=== PATIENT | female | born 1960 | race African-American/Black ===

== ENCOUNTER 2019-11-12 05:54 | Outpatient (CLI) | payer OTHER, SELFPAY ==
[2019-11-12 16:38] LABS: SARS-CoV-2 RNA PCR Negative
== END 2019-11-12 05:55 | disposition home or self-care (01) ==
LOC: ANHCOVIDDT 05:54
PROVIDERS: PCP Internal Medicine; Visit Provider Orthopaedic Surgery
DX: Z01.818 Encounter for other preprocedural examination (principal); Z11.59 Encounter for screening for other viral diseases
CPT/HCPCS: 87635; C9803; U0003

== ENCOUNTER 2019-11-12 09:20 | Outpatient (CLI) | payer OTHER, SELFPAY ==
[2019-11-12 10:46] LABS: Blood Urea Nitrogen 12 mg/dL (7-17); Calcium 9.6 mg/dL (8.4-10.2); Carbon Dioxide 22 mmol/L (22-30); Chloride 110 mmol/L (98-107); Estimated Glomerular Filt Rate 43; Glucose 96 mg/dL (65-105); Sodium 141 mmol/L (137-145)
== END 2019-11-12 09:21 | disposition home or self-care (01) ==
PROVIDERS: PCP Internal Medicine; Visit Provider Anesthesiology
DX: R79.89 Other specified abnormal findings of blood chemistry (principal)
CPT/HCPCS: 36415; 80048

== ENCOUNTER 2019-11-14 01:10 | Day surgery (SDC) | payer OTHER, SELFPAY ==
[2019-11-12 07:37] VITALS: BMI 21.8
[2019-11-14] VITALS (14 sets, daily range): BP systolic 125–160; BP diastolic 71–98; PULSE 60–106; RESP 10–20; TEMP 36.2–36.5; O2SAT 94–100
[2019-11-14] MEDS: LACTATED RINGERS 1,000 ML 30 ML IV CONT ×2 (09:30→12:56)
--- NOTE | 2019-11-14 10:57 | WPDANESEPPF ---
Anes - Initial Pre Proc Eval Procedure: Operation Date: 11/14/19 10:15 Proposed Procedures p Left Shoulder Arthroscopic Capsular Release, Manipulation, Proceed As Indicated - Nba Epstein MD Date/Time: 11/14/19 10:57 Surgeon: Nba Epstein MD Pre Op Diagnosis: Left Shoulder Adhesive Capsulitis Patient Data Age: 58 Gender: F Height: 5 ft 4 in Weight: 58.9 kg Last Vital Signs Temp 97.7 F 11/14/19 08:15 Pulse 70 11/14/19 08:15 Resp 15 11/14/19 08:15 BP 136/74 11/14/19 08:15 Pulse Ox 100 11/14/19 08:15 Allergies Allergy/AdvReac Type Severity Reaction Status Date / Time codeine Allergy Unknown Itching, Verified 11/12/19 07:39 THROAS SWELLING Penicillins Allergy Unknown Itching Verified 11/12/19 07:39 tramadol Allergy Unknown Itching, Verified 11/12/19 07:39 THROAT SWELLING gabapentin Allergy Itching Verified 11/12/19 07:40 hydrocodone Allergy ITCHING, Verified 11/12/19 07:39 THROAT SWELLING prednisone AdvReac Unknown Confusion Verified 11/12/19 07:39 Home Medications Medication Instructions Recorded Confirmed Type baclofen 10 mg tablet 10 mg PO DAILY 05/20/19 11/12/19 History esterified 1 tablet PO EVERY OTHER DAY 05/20/19 11/12/19 History estrogens-methyltestosterone 0.625 mg-1.25 mg tablet biotin 2,500 mcg capsule 2,500 mcg PO DAILY 06/05/19 11/12/19 History rosuvastatin 5 mg tablet 5 mg PO DAILY #30 tablet 07/07/19 11/12/19 Rx topiramate 100 mg capsule,extended 100 mg PO QPM 09/17/19 11/12/19 History release 24 hr calcium carbonate [Calcium 600] 600 mg PO DAILY 11/12/19 11/12/19 History Patient hx anesthesia problems: none and post op nausea/vomiting (will give Zofran and Scopolamine) Family hx anesthesia problems: none PMFSH Past Medical History Medical History (Updated 09/17/19 @ 10:41 by Kaitlin Simon) Adhesive capsulitis of left shoulder CKD (chronic kidney disease) stage 3, GFR 30-59 ml/min Dyslipidemia Elevated TSH Essential hypertension IFG (impaired fasting glucose) Occipital neuralgia Shingles Surgical History Surgical History (Updated 09/17/19 @ 10:00 by Nicole Sanchez) History of cholecystectomy (~05/2008) History of hysterectomy (~10/2001) Family History Family History (Updated 09/19/16 @ 16:05 by DOCTOR UNKNOWN) Mother Family history of Alzheimer's disease Family history of throat cancer, Onset Age: 74 Social History Social History Smoking status: Never smoker Alcohol intake: never Anes - Eval Final PreProcedure Day of Procedure 11/14/19 10:57 Patient weight: normal Heart: regular rate and rhythm Lungs: clear to auscultation Airway: Mallampati scale class II Neurological: alert and oriented Last oral intake: >/= 8 hours ASA classification: III Emergent: no Anesthetic plan: proceed Anesthesia type and monitoring: general ETT (may use LMA if just manipulation) and standard monitoring Informed Consent: The patient's anesthetic plan and its attendant risks and benefits were discussed with the patient/family/POA. Questions were solicited and answers provided to the satisfaction of the patient/family/POA.
[2019-11-14] MEDS: ONDANSETRON INJ 4 MG/2 ML VIAL IV PUSH ×2 (11:00→15:52)
[2019-11-14] MEDS: SCOPOLAMINE 1.5 MG PATCH TRANSDERM (11:03)
--- NOTE | 2019-11-14 11:07 | WPDHPUPDATE1 ---
History and Physical Update Update Date/Time: 11/14/19 11:07 History and Physical has been reviewed, including an updated exam of the patient. There are NO changes in the patient's condition. Risks, benefits, and alternatives have been discussed and questions answered. Patient agrees to proceed with procedure.
[2019-11-14] MEDS: CLINDAMYCIN 900 MG/NS 50 ML 900 MG/50 ML PIGGYBACK 50 MG IVPB (11:13)
[2019-11-14] MEDS: BUPIVACAINE/EPINEPHRINE 0.5% 30 ML VIAL 20 ML INFILTRATE (12:00)
--- NOTE | 2019-11-14 14:26 | SUR.PHASEI ---
1427 SPOKE WITH (DAKOTA) AND GAVE HIM AN UPDATE ON SPOUSE, TOLD HIM IT WOULD BE AT LEAST ANOTHER HOUR BEFORE DISCHARGE
--- NOTE | 2019-11-14 15:39 | PM.PROC ---
Procedure Note - Detailed Date of procedure: 11/14/19 Pre-op diagnosis: Left Shoulder Adhesive Capsulitis Post-op diagnosis: other (1. Adhesive capsulitis left shoulder. 2. Subacromial impingement syndrome.) Procedure performed: 1. Arthroscopic capsular release with manipulation under anesthesia. 2. Arthroscopic subacromial decompression. Description of procedure: The shoulder was very tight with external rotation to 20? and elevation 70?. Gentle manipulation was performed and this was improved slightly. Diagnostic arthroscopy was performed followed by capsule release. She had a significant hyperemia of the capsule with capsulitis. The rotator cuff appeared intact on the articular side as well as the subscapularis. The subacromial bursa was inflamed and thickened. The bursal side cuff showed mild fraying and also fraying on the undersurface of the acromion consistent with impingement syndrome. Acromioplasty was performed and bursectomy was completed. Range of motion at the conclusion of the procedure was 70? external rotation and elevation to 150?. Anesthesia: GLMA Surgeon: Nba Epstein MD Estimated blood loss (mL): 10 Complications: No immediate complications Condition: stable Findings: Brief history: The patient complained of persistent pain and limited range of motion. Pain persisted despite physical therapy and cortisone injections. Operative details: Preoperative antibiotics were given. The patient was brought to the operating room. Careful positioning in the beach chair was accomplished. The head neck were carefully positioned. A small bump was placed under the left shoulder. The shoulder was examined. Manipulation was performed before and after the arthroscopy. Range of motion as documented above. The shoulder was prepped and draped in the usual sterile fashion. Standard posterior and anterior arthroscopic portals were established. The shoulder was inspected. The capsule was very thickened and hyperemic. The biceps and subscapularis, as well as the rotator cuff were normal. The labrum was normal. The rotator interval tissue was resected. Release of the capsule anterior inferior and posterior was accomplished with the radiofrequency probe and the arthroscopic resector punch. Particular care was taken at the axillary pouch to protect the axillary nerve. Attention was turned to the subacromial space. A complete bursectomy was performed. An accessory lateral portal was created. The acromion was clearly visualized. The coracoacromial ligament was released. Careful acromioplasty was performed utilizing views from both lateral and posterior. Loose bone fragments were carefully irrigated from the joint. The arthroscopic instruments were removed. The wounds were closed with interrupted 3-0 Monocryl suture followed by Steri-Strips. A sterile dressing was applied with a sling. The patient was extubated and brought to the recovery room in stable condition. There were no complications.
== END 2019-11-14 16:25 | disposition home or self-care (01) ==
PROVIDERS: PCP Internal Medicine; Visit Provider Orthopaedic Surgery
PROC: (CPT 29805; principal; 2019-11-14 10:15)
DX: M75.02 Adhesive capsulitis of left shoulder (principal); M75.42 Impingement syndrome of left shoulder
CPT/HCPCS: 29822; A4565; A9270; J0131; J2250; J2405; J2704; J3010; J7120

== ENCOUNTER 2019-12-27 04:37 | Outpatient (CLI) | payer OTHER, SELFPAY ==
[2019-12-27 18:08] LABS: SARS-CoV-2 RNA PCR Negative
== END 2019-12-27 04:38 | disposition home or self-care (01) ==
LOC: ANHCOVIDDT 04:37
PROVIDERS: PCP Internal Medicine; Visit Provider Orthopaedic Surgery
DX: Z01.812 Encounter for preprocedural laboratory examination (principal); Z11.59 Encounter for screening for other viral diseases
CPT/HCPCS: 87635; C9803; U0003

== ENCOUNTER 2019-12-30 01:17 | Day surgery (SDC) | payer OTHER, SELFPAY ==
[2019-12-24 17:31] VITALS: BMI 22.3
--- NOTE | 2019-12-29 13:01 | WPDANESEPPF ---
Anes - Initial Pre Proc Eval Procedure: Operation Date: 12/30/19 07:30 Proposed Procedures p Left Shoulder Manipulation Under Anesthesia - Nba Epstein MD Date/Time: 12/29/19 13:01 Surgeon: Nba Epstein MD Pre Op Diagnosis: Left Shoulder Adhesive Capsulitis Patient Data Age: 59 Gender: F Height: 1.63 m Weight: 58.9 kg Allergies Allergy/AdvReac Type Severity Reaction Status Date / Time codeine Allergy Unknown Itching, Verified 12/02/19 10:48 THROAS SWELLING Penicillins Allergy Unknown Itching Verified 12/02/19 10:48 tramadol Allergy Unknown Itching, Verified 12/02/19 10:48 THROAT SWELLING gabapentin Allergy Itching Verified 12/02/19 10:48 hydrocodone Allergy ITCHING, Verified 12/02/19 10:48 THROAT SWELLING prednisone AdvReac Unknown Confusion Verified 12/02/19 10:48 Home Medications Medication Instructions Recorded Confirmed Type baclofen 10 mg tablet 10 mg PO DAILY 05/20/19 12/25/19 History esterified 1 tablet PO EVERY OTHER DAY 05/20/19 12/25/19 History estrogens-methyltestosterone 0.625 mg-1.25 mg tablet biotin 2,500 mcg capsule 2,500 mcg PO DAILY 06/05/19 12/25/19 History rosuvastatin 5 mg tablet 5 mg PO DAILY #30 tablet 07/07/19 12/25/19 Rx topiramate 100 mg capsule,extended 100 mg PO QPM 09/17/19 12/25/19 History release 24 hr calcium carbonate [Calcium 600] 600 mg PO DAILY 11/12/19 12/25/19 History Patient hx anesthesia problems: none Family hx anesthesia problems: none [facility] Social History Social History Smoking status: Never smoker Alcohol intake: never Gender identity (if verbalized by the patient): Female Anes - Eval Final PreProcedure Day of Procedure 12/29/19 13:01 Patient weight: normal Heart: regular rate and rhythm Lungs: clear to auscultation and normal air movement Airway: Mallampati scale class II Neurological: alert and oriented Last oral intake: >/= 8 hours ASA classification: III Emergent: no Anesthetic plan: proceed Anesthesia type and monitoring: general GIVS and LMA Informed Consent: The patient's anesthetic plan and its attendant risks and benefits were discussed with the patient/family/POA. Questions were solicited and answers provided to the satisfaction of the patient/family/POA.
[2019-12-30] VITALS (8 sets, daily range): BP systolic 119–173; BP diastolic 67–91; PULSE 62–93; RESP 14–21; TEMP 36.2; O2SAT 99–100
[2019-12-30] MEDS: LACTATED RINGERS 1,000 ML 30 ML IV CONT ×2 (07:00→08:45)
--- NOTE | 2019-12-30 07:13 | WPDHPUPDATE1 ---
History and Physical Update Update Date/Time: 12/30/19 07:13 History and Physical has been reviewed, including an updated exam of the patient. There are NO changes in the patient's condition. Risks, benefits, and alternatives have been discussed and questions answered. Patient agrees to proceed with procedure.
[2019-12-30] MEDS: SCOPOLAMINE 1.5 MG PATCH TRANSDERM (07:15)
[2019-12-30] MEDS: IBUPROFEN IV 800 MG/200 ML 800 MG/200 ML BAG 400 MG IVPB (08:38)
--- NOTE | 2019-12-30 15:01 | PM.PROC ---
Procedure Note - Detailed Date of procedure: 12/30/19 Pre-op diagnosis: Left Shoulder Adhesive Capsulitis Post-op diagnosis: same Procedure performed: Manipulation under anesthesia left shoulder. Description of procedure: The patient developed significant stiffness after initial capsule release arthroscopically. This was compounded by the fact that she is unable to tolerate any medications other than ibuprofen to assist with pain and range of motion. She completely stalled out at her physical therapy. The block to motion was quite firm and pronounced upon examination in the clinic. We discussed the options and agreed to manipulate the shoulder under anesthesia. The procedure improve the motion quite significantly with modest pressure. She has a continuous passive motion machine and will follow up with her physical therapist today. Anesthesia: GLMA Surgeon: Nba Epstein MD Findings: Preprocedure to postprocedure range of motion as follows. Elevation 90? to 170?. External rotation 15? to 80?. External rotation in abduction 15? to 60?. Internal rotation 30? to 60?. Manipulation was performed in the typical fashion with intial gentle elevation. External rotation was accomplished both abduction and at the side. Internal rotation was performed in abduction. The release of modest adhesions was felt. No other abnormal instability or crepitus was observed.
== END 2019-12-30 10:00 | disposition home or self-care (01) ==
PROVIDERS: PCP Internal Medicine; Visit Provider Orthopaedic Surgery
PROC: (CPT 23700; principal; 2019-12-30 07:30)
DX: M75.02 Adhesive capsulitis of left shoulder (principal); E78.5 Hyperlipidemia, unspecified; I12.9 Hypertensive chronic kidney disease with stage 1 through stage 4 chronic kidney disease, or unspecified chronic kidney disease; N18.3 Chronic kidney disease, stage 3 (moderate)
CPT/HCPCS: 23700; A9270; J0330; J1030; J1040; J1100; J1741; J2405; J2704; J3301; J7120

== ENCOUNTER → 2020-03-23 13:08 | Outpatient (CLI) | payer OTHER, SELFPAY ==
--- NOTE | ~2020-03-23 | DEXA_ITS ---
Bone Density Report Name: Megha Matthews Age: 59 Sex: Female Ethnicity: White Date of : 1960 Indication: postmenopausal; screening for osteoporosis; height loss; hysterectomy; Referring Provider: LATANYA RUIZ Study: Bone densitometry was performed. Exam Date: March 23, 2020 Accession number: [id number] Bone Density: Region BMD T-score Z-score Classification AP Spine (L1-L4) 1.036 -0.1 1.3 Normal Femoral Neck (Left) 0.676 -1.6 -0.3 Osteopenia Total Hip (Left) 0.836 -0.9 0.1 Normal Femoral Neck (Right) 0.652 -1.8 -0.5 Osteopenia Total Hip (Right) 0.814 -1.0 -0.1 Normal Total Hip Mean 0.825 -1.0 0.0 Normal World Health Organization criteria for BMD impression classify patients as: Normal (T-score at or above -1.0), Osteopenia (T-score between -1.0 and -2.5), or Osteoporosis (T-score at or below -2.5). 10-year Fracture Risk: FRAX not reported because: Treated for osteoporosis Clinical Information Provided by Patient: Is being treated for osteoporosis Has used the following medications: HRT (i.e. estrogen/hormone therapy), Vitamin D, Calcium Has the following medical conditions: Hysterectomy Patient maximum height was 65 Menopause Age: 37 No regular weight bearing exercise Does not regularly consume dairy products Drinks caffeinated beverages Onset of menses at age 14 Number of children 2 Impression: The patient has low bone mass, based on the Right Femoral Neck T-score. Discussion: It is important to ask patients whether they are taking their medications and to encourage continued and appropriate compliance with their osteoporosis therapies to reduce fracture risk. It is also important to review their risk factors and encourage appropriate calcium and vitamin D intakes, exercise, fall prevention and other lifestyle measures. Follow-Up: Consider a repeat BMD and Vertebral Fracture Assessment (VFA) exam in 2 years or sooner if medically necessary, to reassess this patient's status. Reported by: NEFTALI on 03/23/2020 1:29:00 PM. Reviewed, dictated and finalized at location A. [place]
== END ==
PROVIDERS: PCP Internal Medicine; Visit Provider Internal Medicine
DX: Z78.0 Asymptomatic menopausal state (principal); M85.852 Other specified disorders of bone density and structure, left thigh; M85.851 Other specified disorders of bone density and structure, right thigh
CPT/HCPCS: 77080

== ENCOUNTER 2021-05-25 08:39 | Outpatient (CLI) | payer BC, SELFPAY ==
--- NOTE | 2021-05-25 08:47 | ECG_ITS ---
Measurements Intervals [place] Rate: 63 P: 75 WA: 205 QRS: 5 QRSD: 83 T: 48 QT: 382 QTc: 392 Interpretive Statements SINUS RHYTHM BORDERLINE AV CONDUCTION DELAY BORDERLINE R WAVE PROGRESSION, ANTERIOR LEADS BASELINE WANDER- I, AVR, AVL, AVF BORDERLINE ECG Electronically Signed On 05-25-2021 12:03:45 UTILITY WORKER by Delfino Mcelroy D.O.
== END 2021-05-25 08:40 | disposition home or self-care (01) ==
PROVIDERS: PCP Internal Medicine; Visit Provider Internal Medicine
DX: I10 Essential (primary) hypertension (principal); I45.9 Conduction disorder, unspecified
CPT/HCPCS: 93005

== ENCOUNTER 2021-09-19 14:29 | Outpatient (CLI) | payer BC, SELFPAY ==
--- NOTE | ~2021-09-19 | XR_ITS ---
EXAMINATION: XR chest 2V 09/19/2021 14:46 INDICATION: Paralysis of the vocal cords and PROCEDURE: 2 view chest COMPARISON: 02/09/2019 FINDINGS: The lungs are clear. The cardiomediastinal silhouette is within normal limits. There are no pleural effusions. There is no pneumothorax suspected. There are cholecystectomy clips. IMPRESSION: 1: NO ACUTE CARDIOPULMONARY DISEASE. Reviewed, dictated and finalized at location A.
== END 2021-09-19 14:30 | disposition home or self-care (01) ==
LOC: ANHIMG 14:34
PROVIDERS: PCP Internal Medicine; Visit Provider Otolaryngology
DX: J38.01 Paralysis of vocal cords and larynx, unilateral (principal)
CPT/HCPCS: 71046

== ENCOUNTER 2021-12-23 01:20 | Day surgery (SDC) | payer BC, SELFPAY ==
[2021-12-06 13:43] VITALS: BMI 23.4
--- NOTE | 2021-12-22 12:41 | WPDANESEPPF ---
Anes - Initial Pre Proc Eval Procedure: Operation Date: 12/23/21 11:00 Proposed Procedures p Screening Colonoscopy - Pierre Padilla MD Date/Time: 12/22/21 12:41 Surgeon: Pierre Padilla MD Pre Op Diagnosis: neoplasm screening Patient Data Age: 61 Gender: F Height: 1.6 m Weight: 60 kg Allergies Allergy/AdvReac Type Severity Reaction Status Date / Time codeine Allergy Unknown Itching, Verified 12/23/21 09:34 THROAS SWELLING Penicillins Allergy Unknown Itching Verified 12/23/21 09:34 tramadol Allergy Unknown Itching, Verified 12/23/21 09:34 THROAT SWELLING gabapentin Allergy Itching Verified 12/23/21 09:34 hydrocodone Allergy ITCHING, Verified 12/23/21 09:34 THROAT SWELLING prednisone AdvReac Unknown Confusion Verified 12/23/21 09:34 Home Medications Medication Instructions Recorded Confirmed Type biotin 2,500 mcg capsule 2,500 mcg PO DAILY 06/05/19 12/23/21 History calcium carbonate 600 mg calcium 600 mg PO DAILY 11/12/19 12/23/21 History (1,500 mg) tablet (Calcium) baclofen 10 mg tablet 20 mg PO DAILY 05/25/21 12/23/21 History cholecalciferol (vitamin D3) 50 50 mcg PO DAILY 05/25/21 12/23/21 History mcg (2,000 unit) capsule topiramate 100 mg capsule,extended 50 mg PO DAILY 05/25/21 12/23/21 History release 24 hr (Trokendi XR) rosuvastatin 5 mg tablet (Crestor) 5 mg PO DAILY #90 tabs 06/30/21 12/23/21 Rx dapagliflozin 5 mg tablet (Farxiga) 5 mg PO DAILY #30 tabs 10/20/21 12/23/21 Rx Patient hx anesthesia problems: post op nausea/vomiting Family hx anesthesia problems: none Results Review: All pre-operative results and documents have been reviewed as part of the pre-operative evaluation. [facility] Past Medical History Medical History (Updated 12/22/21 @ 12:41 by Neil Gonzalez DO) Adhesive capsulitis of left shoulder CKD (chronic kidney disease) stage 3, GFR 30-59 ml/min Diabetes type 2, controlled Dyslipidemia Elevated TSH Thryoid hormone normal in june Essential hypertension IFG (impaired fasting glucose) Occipital neuralgia Shingles Surgical History Surgical History History of arthroscopic surgery of shoulder (~12/15/19) Capsule Release, Manipulation, Subacromial Decompression History of cholecystectomy (~05/2008) History of hysterectomy (~10/2001) History of shoulder surgery (~12/30/19) Manipulation Under Anesthesia Family History Family History Mother Family history of Alzheimer's disease Family history of throat cancer, Onset Age: 74 Social History Social History Smoking status: Never smoker Second hand tobacco smoke exposure: No Alcohol intake: never Alcohol use details: Social Substance use: never Substance use type: does not use Living arrangements: with family Gender identity (if verbalized by the patient): Female Spiritual care concerns: No Anes - Eval Final PreProcedure Day of Procedure 12/22/21 12:41 Patient weight: normal Heart: regular rate and rhythm Lungs: clear to auscultation Airway: Mallampati scale class II Neurological: alert and oriented Last oral intake: >/= 8 hours ASA classification: III Emergent: no Anesthetic plan: proceed Anesthesia type and monitoring: general GIVS and standard monitoring Results Review: All pre-operative results and documents have been reviewed as part of the pre-operative evaluation. Informed Consent: The patient's anesthetic plan and its attendant risks and benefits were discussed with the patient/family/POA. Questions were solicited and answers provided to the satisfaction of the patient/family/POA.
[2021-12-23 09:49] VITALS: BP 124/87; PULSE 110; RESP 18; TEMP 36.3; O2SAT 100; BMI 22.7
[2021-12-23 10:02] LABS: Glucose Point of Care 124 mg/dl (65-105)
--- NOTE | 2021-12-23 10:02 | SUR.PREOP ---
Blood [id number]
[2021-12-23] MEDS: LACTATED RINGERS 1,000 ML 150 ML IV CONT (10:07)
--- NOTE | 2021-12-23 10:33 | PM.HPGS ---
History of Present Illness History of Present Illness Consent: Risks, benefits, and alternatives have been discussed and questions answered. Patient agrees to proceed with procedure. Chief complaint: neoplasm screening Narrative: Megha Matthews is a 61 year old female here for screening colonoscopy, last one more than 10 years ago Review of Systems Constitutional: Constitutional: Denies headache(s) and Denies weakness Eyes: Eyes: Denies blurry vision ENT: Reports Normal hearing present, Denies headache(s) and Denies neck pain Cardiovascular: Cardiovascular: Denies chest pain and Denies dyspnea Respiratory: Respiratory: Denies dyspnea Gastrointestinal: Gastrointestinal: Reports no additional gastrointestinal complaints Genitourinary: Genitourinary: Denies dysuria Musculoskeletal: Musculoskeletal: Denies neck pain Integumentary/Breasts: Skin/Breast: Denies dry skin Neurologic: Reports Normal hearing present, Denies headache(s) and Denies weakness Psychiatric: Psychiatric: Denies anxiety Endocrine: Endocrine: Denies change in body appearance Hematologic/Lymphatic: Hematologic/Lymphatic: Denies easy bleeding Allergic/Immunologic: Allergic/Immunologic: Denies urticaria PMFSH Past Medical History Medical History (Updated 12/23/21 @ 10:34 by Pierre Padilla MD) Adhesive capsulitis of left shoulder CKD (chronic kidney disease) stage 3, GFR 30-59 ml/min Colon cancer screening Diabetes type 2, controlled Dyslipidemia Elevated TSH Thryoid hormone normal in june Essential hypertension IFG (impaired fasting glucose) Occipital neuralgia Shingles Surgical History Surgical History History of arthroscopic surgery of shoulder (~12/15/19) Capsule Release, Manipulation, Subacromial Decompression History of cholecystectomy (~05/2008) History of hysterectomy (~10/2001) History of shoulder surgery (~12/30/19) Manipulation Under Anesthesia Family History Family History Mother Family history of Alzheimer's disease Family history of throat cancer, Onset Age: 74 Social History Social History Smoking status: Never smoker Second hand tobacco smoke exposure: No Alcohol intake: never Alcohol use details: Social Substance use: never Substance use type: does not use Living arrangements: with family Gender identity (if verbalized by the patient): Female Spiritual care concerns: No Meds Home Medications and Allergies Home Medications Medication Instructions Recorded Confirmed Type biotin 2,500 mcg capsule 2,500 mcg PO DAILY 06/05/19 12/23/21 History calcium carbonate 600 mg calcium 600 mg PO DAILY 11/12/19 12/23/21 History (1,500 mg) tablet (Calcium) baclofen 10 mg tablet 20 mg PO DAILY 05/25/21 12/23/21 History cholecalciferol (vitamin D3) 50 50 mcg PO DAILY 05/25/21 12/23/21 History mcg (2,000 unit) capsule topiramate 100 mg capsule,extended 50 mg PO DAILY 05/25/21 12/23/21 History release 24 hr (Trokendi XR) rosuvastatin 5 mg tablet (Crestor) 5 mg PO DAILY #90 tabs 06/30/21 12/23/21 Rx dapagliflozin 5 mg tablet (Farxiga) 5 mg PO DAILY #30 tabs 10/20/21 12/23/21 Rx Allergies Allergy/AdvReac Type Severity Reaction Status Date / Time codeine Allergy Unknown Itching, Verified 12/23/21 09:34 THROAS SWELLING Penicillins Allergy Unknown Itching Verified 12/23/21 09:34 tramadol Allergy Unknown Itching, Verified 12/23/21 09:34 THROAT SWELLING gabapentin Allergy Itching Verified 12/23/21 09:34 hydrocodone Allergy ITCHING, Verified 12/23/21 09:34 THROAT SWELLING prednisone AdvReac Unknown Confusion Verified 12/23/21 09:34 Vital Signs Vital Signs - 24 hr 12/23/21 09:49 Temperature 97.3 F L Pulse Rate 110 H Respiratory Rate 18 Blood Pressure 124/87
[2021-12-23 10:49] VITALS: BP 86/67; PULSE 102; RESP 12; O2SAT 99
[2021-12-23 10:59] VITALS: BP 105/86; PULSE 99; RESP 14; O2SAT 98
[2021-12-23 11:09] VITALS: BP 105/81; PULSE 91; RESP 16; O2SAT 99
== END 2021-12-23 11:16 | disposition home or self-care (01) ==
PROVIDERS: PCP Internal Medicine; Visit Provider Internal Medicine Gastroenterology
PROC: 0DJD8ZZ Inspection of Lower Intestinal Tract, Via Natural or Artificial Opening Endoscopic (ICD-10-PCS; CPT 45378; principal; 2021-12-23 11:00)
DX: Z12.11 Encounter for screening for malignant neoplasm of colon (principal); I12.9 Hypertensive chronic kidney disease with stage 1 through stage 4 chronic kidney disease, or unspecified chronic kidney disease; N18.30 Chronic kidney disease, stage 3 unspecified; E11.22 Type 2 diabetes mellitus with diabetic chronic kidney disease; E78.5 Hyperlipidemia, unspecified; Z90.49 Acquired absence of other specified parts of digestive tract
CPT/HCPCS: 45378; 82948; J2704; J7120

== ENCOUNTER 2022-06-17 11:08 | Outpatient (CLI) | payer BC, SELFPAY ==
--- NOTE | ~2022-06-17 | XR_ITS ---
AP and lateral views of the left hip Clinical history: Pain Findings: No acute fracture or dislocation is seen. Osseous alignment is anatomic. Bilateral hip and SI joint spaces are preserved. Soft tissues are unremarkable. Impression: No significant abnormality is seen. Reviewed, dictated and finalized at location [] [facility] Impression: No significant abnormality is seen.
== END 2022-06-17 11:09 | disposition home or self-care (01) ==
LOC: ANHIMG 11:11
PROVIDERS: PCP Internal Medicine; Visit Provider Internal Medicine
DX: M25.552 Pain in left hip (principal)
CPT/HCPCS: 73502

== ENCOUNTER 2023-12-18 11:44 | Outpatient (CLI) | payer BC, SELFPAY ==
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
== END 2023-12-18 11:45 | disposition home or self-care (01) ==
LOC: ANHIMG 11:47
PROVIDERS: PCP Family Medicine; Visit Provider Nurse Practitioner Family
DX: S49.92XA Unspecified injury of left shoulder and upper arm, initial encounter (principal)
CPT/HCPCS: 73030

== ENCOUNTER 2024-01-04 10:27 | Outpatient (CLI) | payer BC, SELFPAY ==
--- NOTE | ~2024-01-04 | US_ITS ---
EXAMINATION: US thyroid DATE: 01/04/2024 10:42 INDICATION: Nontoxic goiter TECHNIQUE: Multiple ultrasound images of the thyroid were obtained. COMPARISON: None. FINDINGS: The right thyroid lobe measures 4.2 x 1.4 x 1.5 cm. The left thyroid lobe measures 4.1 x 1.2 x 1.2 c m. Thyroid isthmus measures 2 mm in thickness. No discrete nodules identified. There is normal echote xture, echogenicity and vascular flow throughout the thyroid gland. IMPRESSION: 1. Normal thyroid ultrasound. Reviewed, dictated and finalized at location B.
== END 2024-01-04 10:28 ==
PROVIDERS: PCP Family Medicine; Visit Provider Nurse Practitioner Family
DX: E04.9 Nontoxic goiter, unspecified (principal)
CPT/HCPCS: 76536

== ENCOUNTER 2024-01-18 08:12 | Outpatient (CLI) | payer BC, SELFPAY ==
--- NOTE | ~2024-01-18 | XR_ITS ---
MODIFIED ESOPHAGRAM HISTORY: Foreign body sensation in the throat TECHNIQUE: Modified barium esophagram was performed on 01/18/2024. I administered fluoroscopy and perf ormed the exam with speech pathologist. Patient was seated for lateral fluoroscopic imaging for adriana stion of thin liquids, pudding, solids and quantified amounts, followed by thin liquids in uncontroll ed amounts. This was recorded on tape. A single fluoroscopic spot image was also recorded. The DAP fo r this procedure was 0.6 Gycm2. The amount of fluoroscopy time used during this procedure was 0.8 min utes. FINDINGS: Oral stage: Adequate function. Pharyngeal stage: Adequate function. Cervical/esophageal stage: Adequate function. IMPRESSION: Patient tolerated regular consistency oral feedings in the upright position. Please jarret elate with speech pathologist findings and specific feeding recommendations. Reviewed, dictated and finalized at location A. IMPRESSION: Patient tolerated regular consistency oral feedings in the upright position. Please correlate with speech pathologist findings and specific feedi ng recommendations.
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
== END 2024-01-18 08:13 | disposition home or self-care (01) ==
PROVIDERS: PCP Family Medicine; Visit Provider Nurse Practitioner Family
DX: R09.A2 Foreign body sensation, throat (principal); R13.10 Dysphagia, unspecified
CPT/HCPCS: 92611

== ENCOUNTER 2024-04-07 11:55 | Outpatient (CLI) | payer BC, SELFPAY ==
--- NOTE | ~2024-04-07 | DEXA_ITS ---
Bone Density Report Name: IRMA WESTON Age: 63 Sex: Female Ethnicity: White Date of : 1960 Indication: postmenopausal; screening for osteoporosis; hysterectomy; Referring Provider: ERNESTO DEVINE Study: Bone densitometry was performed. Exam Date: April 07, 2024 Accession number: [id number] Bone Density: Region BMD T-score Z-score Classification AP Spine(L1-L4) 1.003 -0.4 1.3 Normal Femoral Neck (Left) 0.693 -1.4 0.1 Osteopenia Total Hip (Left) 0.832 -0.9 0.3 Normal Femoral Neck (Right) 0.659 -1.7 -0.2 Osteopenia Total Hip (Right) 0.822 -1.0 0.2 Normal Total Hip Mean 0.827 -1.0 0.3 Normal World Health Organization criteria for BMD impression classify patients as: Normal (T-score at or above -1.0), Osteopenia (T-score between -1.0 and -2.5), or Osteoporosis (T-score at or below -2.5). 10-year Fracture Risk(1): Major Osteoporotic Fracture 9.6% Hip Fracture 1.1% Reported Risk Factors: [place] (), Neck BMD=0.659, BMI=24.9 (1) FRAX(R) Version 3.08. Fracture probability calculated for an untreated patient. Fracture probability may be lower if the patient has received treatment. Clinical Information Provided by Patient: Has used the following medications: Vitamin D, Calcium Has the following medical conditions: Hysterectomy Patient maximum height was 64.0 No regular weight bearing exercise Drinks caffeinated beverages Onset of menses at age 14 Number of children 2 Impression: The patient has low bone mass, based on the Right Femoral Neck T-score. The patient has an estimated ten-year risk of hip fracture of 1.1% and an estimated ten-year risk of major fracture of 9.6%, based on the WHO FRAX algorithm. Discussion: BONE DENSITY IS LOW AT ONE OR MORE SKELETAL SITES. This patient's lowest T-score is low at one or more skeletal sites. It meets the World Health Organization's (WHO) criteria for ?low bone mass? (T-score between -1.0 and -2.5). The patient's 10-year risk of fracture as calculated by FRAX is less than the threshold where pharmacological therapy is recommended by the National Osteoporosis Foundation (NOF). However, all treatment decisions require clinical judgment and consideration of individual patient factors, including patient preferences, comorbidities, previous drug use, risk factors not captured in the FRAX model (e.g., frailty, falls, vitamin D deficiency, increased bone turnover, interval significant decline in bone density) and possible under or overestimation of fracture risk by FRAX. The patient should follow a healthful lifestyle (good nutrition with adequate calcium and vitamin D, and appropriate weight-bearing exercise). Follow-Up: Consider repeating this study in 2 to 3 years to reassess this patient's status, or sooner if there is some new
== END 2024-04-07 11:56 | disposition home or self-care (01) ==
LOC: ANHIMG 11:55
PROVIDERS: PCP Family Medicine; Visit Provider Family Medicine
DX: Z78.0 Asymptomatic menopausal state (principal); M85.852 Other specified disorders of bone density and structure, left thigh; M85.851 Other specified disorders of bone density and structure, right thigh
CPT/HCPCS: 77080

== ENCOUNTER 2024-04-29 10:35 | Outpatient (CLI) | payer BC, SELFPAY ==
--- NOTE | ~2024-04-29 | MR_ITS ---
MRI of the left shoulder Technique: Axial proton-density fat-sat images, coronal proton density fat-sat and T2 fat-sat images, and sagittal T1-weighted and T2 fat-sat images were acquired. Clinical History: Pain Findings: AC joint is intact. Coracoclavicular, coracoacromial, and coracohumeral ligaments are intac t. Supraspinatus and infraspinatus tendons are intact, without partial or full-thickness tear. Subscapul karon tendon is intact. Tendon of the long head of the biceps is intact. No labral tear identified. No degenerative change or effusion of the glenohumeral joint. Inferior glenohumeral ligament is intac t. No fluid distention of the subacromial/subdeltoid bursa. No muscle atrophy or edema. Impression: No significant abnormality seen. Reviewed, dictated and finalized at [facility]. Impression: No significant abnormality seen.
== END 2024-04-29 10:36 | disposition home or self-care (01) ==
LOC: GOSHIMG 10:36
PROVIDERS: PCP Family Medicine; Visit Provider Family Medicine
DX: M25.512 Pain in left shoulder (principal)
CPT/HCPCS: 73221

== ENCOUNTER 2024-06-09 13:46 | Outpatient (CLI) | payer BC, SELFPAY ==
--- NOTE | ~2024-06-09 | XR_ITS ---
EXAM: XR ankle LT min 3V, XR foot LT min 3V DATE: 06/09/2024 14:06 HISTORY: W19.XXXA - Unspecified fall, initial encounter . COMPARISON: None available. FINDINGS: Normal mineralization. No fracture or dislocation. No lytic or blastic lesion. Mild degene rative change at the first MTP joint, as well as with the sesamoid articulations. No erosion or perio steal change. Mild soft tissue swelling over the first MTP joint. IMPRESSION: No acute osseous finding in the left foot or ankle. Reviewed, dictated and finalized at location K. STICK MAN IMPRESSION: No acute osseous finding in the left foot or ankle.
== END 2024-06-09 13:47 | disposition home or self-care (01) ==
LOC: MICIMG 13:47
PROVIDERS: PCP Nurse Practitioner Family; Visit Provider Nurse Practitioner Family
DX: M25.572 Pain in left ankle and joints of left foot (principal)
CPT/HCPCS: 73610; 73630

== ENCOUNTER 2024-09-09 10:26 | Outpatient (CLI) | payer BC, SELFPAY ==
--- NOTE | ~2024-09-09 | XR_ITS ---
XR finger 1st RT min 2V Ordering provider: Ahsan Naik MD History: . M79.646 - Pain in unspecified finger(s) . Comparison: None. FINDINGS: BONES: No acute fracture or dislocation. JOINT SPACES: Normal. SOFT TISSUES: Normal. IMPRESSION: No acute osseous abnormality. Reviewed, dictated and finalized at location A.
== END 2024-09-09 10:27 | disposition home or self-care (01) ==
LOC: MICIMG 10:28
PROVIDERS: PCP Family Medicine; Visit Provider Family Medicine
DX: M79.644 Pain in right finger(s) (principal)
CPT/HCPCS: 73140

== ENCOUNTER 2025-01-19 15:52 | Emergency (ER) | payer MEDICARE, BC, SELFPAY ==
[2025-01-19] VITALS (8 sets, daily range): BP systolic 143–159; BP diastolic 75–85; PULSE 67–76; RESP 10–20; TEMP 36.7; O2SAT 98–100
--- NOTE | ~2025-01-19 | CT_ITS ---
EXAMINATION: CTA chest PE protocol DATE: 01/19/2025 20:42 INDICATION: Positive D-dimer, pleuritic back pain TECHNIQUE: Computed tomography angiography (CTA) of the chest was performed with 100 mL Omnipaque-350 intravenous contrast timed to evaluate the pulmonary arteries. Coronal maximum intensity projection 3D-reconstructions were created by the technologist. The dose-length product (DLP) was 267.57 mGy-cm. Automated exposure control and iterative reconstruction technique were employed. COMPARISON: 02/09/2019. FINDINGS: Lung parenchyma and airways: Clear. Pleura: Unremarkable. Thoracic inlet, axillae and chest wall: Unremarkable. Thoracic aorta: No significant dilation. No dissection. Mediastinum: Normal. Heart and pericardium: Normal. Coronary artery calcifications: Absent. Upper abdomen: Mild distal esophageal and gastric wall edema. Status post cholecystectomy. Left parap elvic cyst. Bones: No acute osseous finding. Pulmonary arteries: Study quality: Adequate. No pulmonary emboli detected. IMPRESSION: No CT evidence of acute pulmonary embolus. No acute process detected in the chest. Reviewed, dictated and finalized at location K.
--- NOTE | ~2025-01-19 | XR_ITS ---
EXAMINATION: XR chest 2V Exam Date/Time: 01/19/2025 18:54 CDT HISTORY: upper back pain Comparison: 09/19/2021. RESULT: Lines, tubes, and devices: Cholecystectomy clips. Lungs and pleura: Clear. Cardiomediastinal silhouette: Stable. Other: No acute osseous or upper abdominal finding. IMPRESSION: No acute cardiopulmonary process. Reviewed, dictated and finalized at location K.
--- OUTSIDE RECORDS SUMMARY | 2025-01-19 15:54 | XMS_ITS | Clinical Summary ---
Author Organization [place] [id number] [facility] Address [address] [place] [address] Care Team Providers Care Outdoor Adventure Instructor Name Role Phone Ahsan Naik MD Primary Care Provider [phone] Allergies Active Allergy Reactions Criticality Noted Date Comments Codeine Anaphylaxis High 12/13/2023 Prednisone Itching Low 12/13/2023 Medications naproxen (NAPROSYN) 500 mg tablet Take 1 tablet (500 mg total) by mouth 2 (two) times a day with meals 14 tablet 12/13/2023 Active cyclobenzaprine (FLEXERIL) 10 mg tablet Take 1 tablet (10 mg total) by mouth 2 (two) times a day as needed for muscle spasms 20 tablet 12/13/2023 Active Active Problems No known active problems Encounters Date Type Department Care Team Description 01/09/2025 Telephone [facility] [address] [place] [address] Thu Barajas Test Results (Right breast biopsy 01/06/25) 01/06/2025 12:23 PM CDT - 01/06/2025 11:59 PM CDT Hospital Encounter [facility]) [address], [place] [id number] Abnormal mammogram Discharge Disposition: Discharge to home or self care 01/06/2025 10:35 AM CDT - 01/06/2025 11:59 PM CDT Hospital Encounter [facility] ([facility]) [address] [place] [address] Abnormal mammogram Discharge Disposition: Discharge to home or self care 12/23/2024 3:09 PM CDT - 12/23/2024 11:59 PM CDT Hospital Encounter [facility] Breast [facility] ([facility]) [address] [place] [address] Abnormality of right breast on screening mammography Discharge Disposition: Discharge to home or self care 12/10/2024 11:00 AM CDT - 12/10/2024 11:59 PM CDT Hospital Encounter [address] [place] [address] Screening mammogram, encounter for Discharge Disposition: Discharge to home or self care from Last 3 Months Surgical History Surgery Date Site/Laterality Comments BREAST BIOPSY 01/06/2025 Right Social History Tobacco Use Types Packs/Day Years Used Date Smoking Tobacco: Never Assessed Personal Safety Answer Date Recorded Have you ever been in or are you currently in a harmful physical or emotional relationship or is someone making you feel afraid or unsafe? 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 Gender Identity Not on file Sexual Orientation Not on file Obstetrics History Last Filed Vital Signs Vital Sign Reading Time Taken Comments Blood Pressure 148/84 12/13/2023 11:52 AM CDT Pulse 82 12/13/2023 11:52 AM CDT Temperature 36.6 C (97.9 F) 12/13/2023 9:41 AM CDT Respiratory Rate 16 12/13/2023 11:52 AM CDT Oxygen Saturation 100% 12/13/2023 11:52 AM CDT Inhaled Oxygen Concentration - - Weight 63.5 kg (140 lb) 12/10/2024 11:06 AM CDT Height 162.6 cm (5' 4) 12/10/2024 11:06 AM CDT Body Mass Index 24.03 12/10/2024 11:06 AM CDT Plan of Treatment Health Maintenance Due Date Last Done Comments Colon Cancer Screening-Colonoscopy 1960 Depression Screening 1960 Fall Risk Assessment 1960 Hepatitis C Screening 1960 Osteoporosis Screening-Bone Density Scan 1960 DTaP/Tdap/Td Vaccine (1 - Tdap) 12/02/1970 Hepatitis B Screening 12/02/1977 Pneumococcal vaccine 65+ (1 of 1 - PCV) 12/02/2009 Zoster Vaccine (1 of 2) 12/02/2009 Covid-19 Vaccine (2 - 2023-2 5 season) 2024 09/07/2020 Well Visit 65+ 12/02/2024 Influenza Vaccine (#1) 2025 Breast Cancer Screening-Mammogram 12/10/2025 12/10/2024, 12/10/2023, 09/11/2022, Additional history exists Medical Devices Implanted Type Area Lens Marker Device Identifier Shelf Expiration Date Model / Serial / Lot [employer] Rigid End Hourglass Marker Breast Biopsy Titanium [id number] s-13 - [id number] Implanted:Qty: 1 on 01/06/2025 at [facility] Right: Breast [employer] [id number] 09/10/2026 [id number] VIVA-2S-1 3 / / [id number] Procedures Procedure Name Priority Date/Time Associated Diagnosis Comments STEREOTACTIC BREAST BIOPSY RIGHT Schedule Routine, Read Routine (OP Routine) 01/06/2025 12:46 PM CDT Abnormal mammogram SHOLA POST CLIP PLACEMENT RIGHT Schedule Routine, Read Routine (OP Routine) 01/06/2025 12:37 PM CDT Abnormal mammogram SURGICAL PATHOLOGY Routine 01/06/2025 12 :02 PM CDT Abnormal mammogram DIAGNOSTIC MAMMOGRAM RIGHT W SHOLA Schedule Routine, Read Routine (OP Routine) 12/23/2024 3:25 PM CDT Abnormality of right breast on screening mammography SCREENING MAMMOGRAM BILATERAL W SHOLA Schedule Routine, Read Routine (OP Routine) 12/10/2024 11:12 AM CDT Screening mammogram, encounter for from Last 3 Months Results * Stereotactic Breast Biopsy Right (01/06/2025 12:46 PM CDT) Anatomical Region Laterality Modality Breast Right Mammography 01/06/2025 12:5 4 PM CDT Addenda Addendum by Shanae Fonseca MD on 01/08/2025 4:18 PM CDT ADDENDUM: Pathology from biopsy of the right breast showed Diagnosis: Breast, right, lower inner, stereotactic guided core biopsy - Calcifications associated with fibroadenomatoid change - No atypical or malignant findings ; please refer to pathology report for details. Pathology is benign and concordant. Normal interval screening mammography is recommended. Results and recommendations will be discussed with the patient by [facility] or referring provider staff and will be separately documented in the medical record. The radiology attending physician has personally reviewed this study, and had reviewed and/or edited this written report and agrees with it. Electronically signed by: Shanae Fonseca M.D. Impressions 01/06/2025 4:24 PM CDT Successful vacuum-assisted core needle biopsy of the RIGHT breast. Pathology is pending. ASSESSMENT: Post Procedure Mammograms for Marker Placement Dictated by: Patricio Knight M.D. The radiology attending physician has personally reviewed this study, and had reviewed and/or edited this written report and agrees with it. Electronically signed by: Shanae Fonseca M.D. Narrative 01/06/2025 4:24 PM CDT EXAMINATION: RIGHT STEREOTACTIC BREAST VACUUM-ASSISTED CORE BIOPSY UTILIZING TOMOSYNTHESIS AND STEREOTACTIC GUIDANCE, PLACEMENT OF A BIOPSY SITE TISSUE MARKER CLIP, AND RIGHT FULL FIELD DIGITAL MAMMOGRAM WITH DIGITAL BREAST TOMOSYNTHESIS HISTORY: Abnormal mammogram. 64-year-old woman with screening detected right breast calcifications. Image guided core needle biopsy is requested to evaluate for malignancy. COMPARISON: 12/23/2024 BREAST PARENCHYMAL COMPOSITION: The breasts are heterogeneously dense, which may obscure small masses. PROCEDURE AND FINDINGS: The risks and potential benefits of the procedures were discussed with the patient and written informed consent was obtained. After a time-out procedure, the patient was placed in the prone position on the biopsy unit. The area of interest was localized and targeted utilizing digital imaging with tomosynthesis and stereotaxis. After sterile preparation of the skin, 1% lidocaine and 1% lidocaine with epinephrine were utilized for local anesthesia. A small skin incision was made with a #11 scalpel blade and a 9 gauge Brevera vacuum-assisted biopsy needle was advanced to the area of interest from an inferior approach utilizing stereotactic guidance. A total of 5 tissue cores were then obtained; these were submitted to surgical pathology in formalin for histologic analysis. The specimen radiograph demonstrates that the calcifications of interest are included within the tissue cores. A TriMark Hourglass tissue marker clip was placed at the biopsy site. The needle was removed, hemostasis was achieved, and Dermabond was applied. There was no evidence of significant immediate complication. The patient was given verbal as well as written post procedural instructions prior to release from the department. A two-view RIGHT digital mammogram with digital breast tomosynthesis post procedure demonstrates that the tissue marker clip is in the expected position. The attending radiologist, Dr. Shanae Fonseca M.D., was present throughout the entire procedure. Dr. Patricio Knight (radiology fellow) was present and participated in the procedure. us Filiberto Rao MD IMG MAMMO PROCEDURES Edited Result - Final * Shola Post Clip Placement Right (01/06/2025 12:37 PM CDT) Anatomical Region Laterality Modality Breast Right Mammography 01/06/2025 4:24 PM CDT Addenda Addendum by Shanae Fonseca MD on 01/08/2025 4:18 PM CDT ADDENDUM: Pathology from biopsy of the right breast showed Diagnosis: Breast, right, lower inner, stereotactic guided core biopsy - Calcifications associated with fibroadenomatoid change - No atypical or malignant findings ; please refer to pathology report for details. Pathology is benign and concordant. Normal interval screening mammography is recommended. Results and recommendations will be discussed with the patient by [facility] or referring provider staff and will be separately documented in the medical record. The radiology attending physician has personally reviewed this study, and had reviewed and/or edited this written report and agrees with it. Electronically signed by: Shanae Fonseca M.D. Impressions 01/06/2025 4:24 PM CDT Successful vacuum-assisted core needle biopsy of the RIGHT breast. Pathology is pending. ASSESSMENT: Post Procedure Mammograms for Marker Placement Dictated by: Patricio Knight M.D. The radiology attending physician has personally reviewed this study, and had reviewed and/or edited this written report and agrees with it. Electronically signed by: Shanae Fonseca M.D. Narrative 01/06/2025 4:24 PM CDT EXAMINATION: RIGHT STEREOTACTIC BREAST VACUUM-ASSISTED CORE BIOPSY UTILIZING TOMOSYNTHESIS AND STEREOTACTIC GUIDANCE, PLACEMENT OF A BIOPSY SITE TISSUE MARKER CLIP, AND RIGHT FULL FIELD DIGITAL MAMMOGRAM WITH DIGITAL BREAST TOMOSYNTHESIS HISTORY: Abnormal mammogram. 64-year-old woman with screening detected right breast calcifications. Image guided core needle biopsy is requested to evaluate for malignancy. COMPARISON: 12/23/2024 BREAST PARENCHYMAL COMPOSITION: The breasts are heterogeneously dense, which may obscure small masses. PROCEDURE AND FINDINGS: The risks and potential benefits of the procedures were discussed with the patient and written informed consent was obtained. After a time-out procedure, the patient was placed in the prone position on the biopsy unit. The area of interest was localized and targeted utilizing digital imaging with tomosynthesis and stereotaxis. After sterile preparation of the skin, 1% lidocaine and 1% lidocaine with epinephrine were utilized for local anesthesia. A small skin incision was made with a #11 scalpel blade and a 9 gauge Brevera vacuum-assisted biopsy needle was advanced to the area of interest from an inferior approach utilizing stereotactic guidance. A total of 5 tissue cores were then obtained; these were submitted to surgical pathology in formalin for histologic analysis. The specimen radiograph demonstrates that the calcifications of interest are included within the tissue cores. A TriMark Hourglass tissue marker clip was placed at the biopsy site. The needle was removed, hemostasis was achieved, and Dermabond was applied. There was no evidence of significant immediate complication. The patient was given verbal as well as written post procedural instructions prior to release from the department. A two-view RIGHT digital mammogram with digital breast tomosynthesis post procedure demonstrates that the tissue marker clip is in the expected position. The attending radiologist, Dr. Shanae Fonseca M.D., was present throughout the entire procedure. Dr. Patricio Knight (radiology fellow) was present and participated in the procedure. Procedure Note Shanae Fonseca MD - 01/06/2025 EXAMINATION: RIGHT STEREOTACTIC BREAST VACUUM-ASSISTED CORE BIOPSY UTILIZING TOMOSYNTHESIS AND STEREOTACTIC GUIDANCE, PLACEMENT OF A BIOPSY SITE TISSUE MARKER CLIP, AND RIGHT FULL FIELD DIGITAL MAMMOGRAM WITH DIGITAL BREAST TOMOSYNTHESIS HISTORY: Abnormal mammogram. 64-year-old woman with screening detected right breast calcifications. Image guided core needle biopsy is requested to evaluate for malignancy. COMPARISON: 12/23/2024 BREAST PARENCHYMAL COMPOSITION: The breasts are heterogeneously dense, which may obscure small masses. PROCEDURE AND FINDINGS: The risks and potential benefits of the procedures were discussed with the patient and written informed consent was obtained. After a time-out procedure, the patient was placed in the prone position on the biopsy unit. The area of interest was localized and targeted utilizing digital imaging with tomosynthesis and stereotaxis. After sterile preparation of the skin, 1% lidocaine and 1% lidocaine with epinephrine were utilized for local anesthesia. A small skin incision was made with a #11 scalpel blade and a 9 gauge Brevera vacuum-assisted biopsy needle was advanced to the area of interest from an inferior approach utilizing stereotactic guidance. A total of 5 tissue cores were then obtained; these were submitted to surgical pathology in formalin for histologic analysis. The specimen radiograph demonstrates that the calcifications of interest are included within the tissue cores. A TriMark Hourglass tissue marker clip was placed at the biopsy site. The needle was removed, hemostasis was achieved, and Dermabond was applied. There was no evidence of significant immediate complication. The patient was given verbal as well as written post procedural instructions prior to release from the department. A two-view RIGHT digital mammogram with digital breast tomosynthesis post procedure demonstrates that the tissue marker clip is in the expected position. The attending radiologist, Dr. Shanae Fonseca M.D., was present throughout the entire procedure. Dr. Patricio Knight (radiology fellow) was present and participated in the procedure. IMPRESSION: Successful vacuum-assisted core needle biopsy of the RIGHT breast. Pathology is pending. ASSESSMENT: Post Procedure Mammograms for Marker Placement Dictated by: Kizhan Knight, M.D. The radiology attending physician has personally reviewed this study, and had reviewed and/or edited this written report and agrees with it. Electronically signed by: Shanae Fonseca M.D. Filiberto Rao MD IMG MAMMO PROCEDURES Edited Result - Final * Surgical pathology (01/06/2025 12:02 PM CDT) Tissue (Breast biopsy, needle core) 01/06/2025 12:02 PM CDT Comment:RIGHT stereotactic b reast biopsy, lower inner calcs, from below approach, BIRADS 4A Narrative PATHOLOGY [facility] - 01/07/2025 2:06 PM CDT EPIC results best viewed via link to PDF [facility] [place] [address] Note to Patients: This report may contain a detailed description of human tissue sent by a health care provider to the laboratory for pathologic evaluation. The content of this report is essential for diagnosis and may provide important critical findings. This information may be unfamiliar to patients to review without a medical professional present. It is advised that the patient review this report in the presence of a health care provider who can answer questions and explain the details. SURGICAL PATHOLOGY REPORT FINAL Patient Name: MEGHA MATTHEWS Gender: F : 1960 (Age: 64) Address: [address] [place], [place] [id number] Hospital #: [id number] Taken:01/06/2025 Received:01/06/2025 Reported: 01/07/2025 Patient Type: [facility] Ancillary Service: UNKNOWN Location: Physician(s): Ahsan Naik M.D. Diagnosis: Breast, right, lower inner, stereotactic guided core biopsy - Calcifications associated with fibroadenomatoid change - No atypical or malignant findings [facility]/01/07/2025 09:24 By this signature, I attest that the above diagnosis is based upon my personal examination of the slides(and/or other material indicated in the diagnosis). Evelyn Zee MD PhD Report Electronically Reviewed and Signed Out By Evelyn Zee MD PhD 01/07/2025 14:06:43 Blayne Shannon M.D. History: The patient is a 64-year-old woman presenting for abnormal mammogram. Operative procedure: Right breast biopsy, BI-RADS 4A. Specimen(s) Received: A: Right stereptactic breast biopsy, lower inner calcs from below approach birads 4a Gross Description: Received in formalin, labeled with the patient s identifiers and right stereo breast lower inner calcs from below approach BI- RADS 4A are four yellow and white cores of fibrofatty tissue (2.4-3.0 cm each in length by 0.3 cm in diameter). The cores designated on the jar lid are labeled A1 and the remaining cores are labeled A2. Jar 0. Placed in formalin immediately after collection. Total fixation time= 8.5 hours. sxst/01/06/2025 17:26 PA(s): Rosa Maria Vazquez By this signature, I attest that the above diagnosis is based upon my personal examination of the slides(and/or other material). Addenda/Procedures The performance characteristics of some immunohistochemical stains, fluorescence in-situ hybridization tests and immunophenotyping by flow cytometry cited in this report (if any) were determined by the Surgical Pathology and Flow Cytometry Departments at [facility] as part of an ongoing air quality technician program and in compliance with federally mandated regulations drawn from the Clinical Laboratory Improvement Act of 1988 (CLIA '88). Some of these tests rely on the use of analyte specific reagents and are subject to specific labeling requirements by the US Food and Drug Administration. Such diagnostic tests may only be performed in a facility that is certified by the Department of Health and Human Services as a high complexity laboratory under CLIA '88. The FDA has determined that such clearance or approval is not necessary. This test is used for clinical purposes. It should not be regarded as investigational or for research. Nevertheless, federal rules concerning the medical use of analyte specific reagents require that the following disclaimer be attached to the report: This test was developed and its performance characteristics determined by the Surgical Pathology and Flow Cytometry Departments of [facility]. It has not been cleared or approved by the U. S. Food and Drug Administration. IMAGES AND SCANNED DOCUMENTS, IF INCLUDED, ONLY VIEWABLE IN PDF VERSION OF REPORT us Filiberto Rao MD LAB PATHOLOGY ORDERABLES Fi nal Result PATHOLOGY [facility] 3rd Floor [place], [place] [phone] * (ABNORMAL) Diagnostic Mammogram Right W Shola (12/23/2024 3:25 PM CDT) Anatomical Region Laterality Modality Breast Right Mammography 12/23/2024 4:00 PM CDT Impressions 12/23/2024 4:00 PM CDT Small 0.5 cm grouped amorphous calcifications within the lower inner right breast at posterior depth. Stereotactic biopsy is recommended. The method of initial detection of finding was 3D screening mammography (Sdbt). OVERALL FINAL ASSESSMENT: SUSPICIOUS. BI-RADS Category 4A: Low suspicion for malignancy. RECOMMENDATION: Stereotactic biopsy of right breast calcifications. Dr. Mckeon discussed the above findings and recommendations with the patient. She has been scheduled to return to the [facility] for biopsy on 01/06/2025. This facility will contact the referring clinician's office for an order. Electronically signed by: Lauryn Mckeon M.D. Narrative 12/23/2024 4:00 PM CDT EXAMINATION: RIGHT UNILATERAL DIGITAL DIAGNOSTIC MAMMOGRAM AND DIGITAL BREAST TOMOSYNTHESIS HISTORY: 64-year-old woman with screening detected right breast calcifications. COMPARISON: 12/10/2024 and priors dating back to 2014 TECHNIQUE: Full field digital mammographic views of the RIGHT breast were performed, including computer aided detection (CAD) and digital breast tomosynthesis (DBT). BREAST PARENCHYMAL COMPOSITION: The breasts are heterogeneously dense, which may obscure small masses. MAMMOGRAM FINDINGS: On spot magnification images, there is a persistent 0.5 cm group of amorphous calcifications within the lower inner right breast at posterior depth. us Filiberto Rao MD IMG MAMMO PROCEDURES Final Result * (ABNORMAL) Screening Mammogram Bilateral W Shola (12/10/2024 11:12 AM CDT) Anatomical Region Laterality Modality Breast Bilateral Mammography Impressions 12/11/2024 3:04 PM CDT Right 1) Calcifications: Right breast calcifications in the lower inner quadrant in the posterior depth. Assessment: 0 - Incomplete. Diagnostic Mammogram is recommended. Left No evidence of malignancy. OVERALL BI-RADS FINAL ASSESSMENT: 0 - Incomplete: Needs Additional Imaging Evaluation RECOMMENDATION: Recommend right breast diagnostic mammogram. Narrative 12/11/2024 3:04 PM CDT EXAMINATION: Screening Mammogram Bilateral W Shola: 12/10/2024 COMPARISON: Relevant prior studies available at the time of interpretation were reviewed. TECHNIQUE: Mammography was performed with 2D and digital breast tomosynthesis (DBT) images. CAD was utilized. BREAST PARENCHYMAL COMPOSITION: The breasts are heterogeneously dense, which may obscure small masses. FINDINGS: Right 1) Calcifications: There are calcifications seen in the lower inner quadrant of the right breast in the posterior depth. This finding needs additional imaging evaluation. Left There is no suspicious mass, calcification, or architectural distortion. us Self Screening Mammogram IMG MAMMO PROCEDURES Fi nal Result from Last 3 Months Insurance [facility] [employer] PPO [facility] CHOICE PLUS [employer] ACCESS NV [employer] MEDICARE [employer] [place] MEDICARE [facility] Care Teams Outdoor Adventure Instructor Relationship Specialty Start Date End Date Ahsan Naik MD [address] [place] [address] PCP - General Family Practice 12/01/24
--- OUTSIDE RECORDS SUMMARY | 2025-01-19 15:54 | XMS_ITS | Continuity of Care Document ---
Author Organization [facility] Address [address] [place] [id number] Phone Care Team Providers Care Manager Business Operations Name Role Phone Reza Preston MD Unavailable Unavailable Allergies, Adverse Reactions, Alerts Substance Reaction Status Criticality Penicillins sob Active No Information Cephalosporins sob Active No Informatio n Medications Medication Instructions Dosage Effective Dates (start - stop) Status Comments Miralax 17 gram/dose oral powder use as needed for constipation - Active lisinopril 20 mg tablet take 1 tablet by oral route every day 20 MG - Active atorvastatin 20 mg tablet take 1 tablet by oral route every day 20 MG - Active hydrochlorothiazide 12.5 mg capsule take 1 capsule by oral route every day 12.5 MG - Active ibuprofen 200 mg capsule take 1 capsule by oral route every 6 hours as needed 200 MG - Active [place] 10 mg-325 mg tablet take 1 tablet by oral route every 4 - 6 hours as needed for pain - Active metoprolol tartrate 25 mg tablet take 1 tablet by oral route 2 times every day 25 MG - Active Procedures Procedure Date Level Iv-surg Path Gross/t, Lvl IV Colonoscopy Flex; W/remov Les- Moderate Sedation - Endoscopy [facility] Facility Charge Colonoscopy Flex; W/remov Les- 13 Colonoscopy Flex; W/bx 1/mx ASC Facility Charge Level Iv-surg Path Gross/micro 13 Advance Directives Directive Yes / No Effective Date File Name No Information Encounters Encounter Description Practice Location Reason(s) For Visit Diagnoses Date Provider Providers Copied on Encounter [facility], [address] [place] [address], [id number] tel:[phone] [facility] No Information 3 Kary Cobb. [address] [place] [address], [id number], [place]. tel:[phone] [facility], [address] [place] [address], [id number] tel:[phone] [facility] No Information 3 Sriram Dennis. [address] [place] [address], [id number], [place]. tel:[phone] Referring Provider: Toni Amato MD, [address] [place] [address], [id number]. tel:[phone] [facility], [address] [place] [address], [id number] tel:[phone] [facility] Encounter for screening for malignant neoplasm of colonFamily history of malignant neoplasm of digestive organsBenign neoplasm of ascending colonBenign neoplasm of transverse colonBenign neoplasm of descending colon 3 Sriram Dennis. [address] [place] [address], [id number], [place]. tel:[phone] Referring Provider: Toni Amato MD, [address] [place] [address], [id number]. tel:[phone] [facility], [address] [place] [address], [id number] tel:[phone] [facility] No Information 3 [facility]. [address] [place] [address], [id number], [place]. tel:[phone] Referring Provider: Sonny Isbell, [address] [place] [address], [id number]. tel:[phone] [facility], [address] [place] [address], [id number] tel:[phone] [facility] Colon polypNon-Spe cific Gastroenteri tis / ColitisDiver ticulosisScr eening for colon cancerErosio n Intestine 3 [facility] [address] [place] [address], [id number], [place]. tel:[phone] Referring Provider: Shad Sanderson MD, [facility] [address], [place], [address]. tel:[phone] [facility], [address] [place] [address], [id number] tel:[phone] [facility] No Information [facility]. [address] [place] [address], [id number], [place]. tel:[phone] Referring Provider: Aranza Larson MD, [address] [place] [address], [id number]. tel:[phone] [facility], [address] [place] [address], [id number] tel:[phone] [facility] No Information 3 [facility] [address] [place] [address], [id number], [place]. tel:[phone] Referring Provider: Shad Sanderson MD, [facility] [address] , [place], [address]. tel:[phone] [facility], [address] [place] [address], [id number] tel:[phone] [facility] No Information 3 [facility] [address] [place] [address], [id number], [place]. tel:[phone] Referring Provider: Shad Sanderson MD, [facility] [address], [place], [address]. tel:[phone] Family History Family Member Type Diagnosis Age At Onset Cousin Problem Cancer, colon Maternal grandmother Problem Cancer, colon Payers Payer name Insurance type Covered constitution party ID Authoriza tion(s) [facility] [id number] Social History Type Description Quantity Date Captured Comments Sex Female Smoking Status No Information Chief Complaint And Reason For Visit No Information Reason For Referral Reason For Referral No Information History Of Present Illness Encounter Date Complaint History Of Prese nt Illness No Information Functional Status Date Functional Assessmen t No Information Instructions Date Instruction Additional Infor nolberto Stop senna containin g products.Use Miralax for constipation. Related to Encounter for screening for malignant neoplasm of colon Assessments Type Assessment Date No Information Patient Care Teams Name Effective Dates (start - stop) Status Members No Information
--- OUTSIDE RECORDS SUMMARY | 2025-01-19 15:54 | XMS_ITS | Encounter Summary ---
Author Organization [facility] Address [address] [facility] [place] [address] Care Team Providers Care Plasterer Tender Name Role Phone Ji Lockhart DO Primary Care Provider [phone] Encounter Details Date Type Department Care Team (Late st Contact Info) Description 12/27/2020 Lab Requisition [facility] [address] [place] [id number] Chapincito Brasher MD [address] [place] [address] Social History Tobacco Use Types Packs/Day Years Used Date Smoking Tobacco: Never Assessed Comments Unknown Sex and Gender Information Value Date Recorded Sex Assigned at Not on file Legal Sex Female 2:51 PM CDT Gender Identity Not on file Sexual Orientation Not on file documented as of this encounter Plan of Treatment Not on file documented as of this encounter Procedures Procedure Name Priority Date/Time Associated Diagnosis Comments DERMATOPATHOLOGY Routine 12/23/2020 12:0 0 AM CDT documented in this encounter Results * DERMATOPATHOLOGY (12/23/2020 12:00 AM CDT) Case Report Dermatopathology Report Case: [id number] Authorizing Provider: Chapincito Brasher MD Collected: 12/23/2020 12:00 AM Ordering Location: [facility] Care Derm[facility] Lab Received: 12/27/2020 06:04 AM Pathologist: David Mahmood MD Specimen: Skin, mid back 06/29/202 1 4:46 PM CDT DERMATOPATHOLOGY LABORATORY Final Diagnosis Specimen A. SKIN, mid back: EPIDERMOID CYST (L72.0) NOT PRESENT AT SAMPLED MARGIN 1 4:46 PM CDT DERMATOPATHOLOGY LABORATORY at 1646 CDT Clinical History E cyst. Check margins. Path# [id number]. 1 4:46 PM CDT DERMATOPATHOLOGY LABORATORY Gross Description Specimen A: Received is one formalin filled container labeled with the patient's name and designated mid back. The specimen consists of a [id number] excision of skin. The specimen is bisected and submitted in cassette 1. Jar 0. 1 4:46 PM T DERMATOPATHOLOGY LABORATORY Microscopic Description Specimen A. SKIN, mid back: Within the dermis, there is a space lined by epithelium that resembles normal epidermis and the infundibular portion of the hair follicle. This lesion is not present at the sampled margin of the specimen. 1 4:46 PM T DERMATOPATHOLOGY LABORATORY Disclaimer An external and internal positive and negative controls are appropriate for the histochemical, immunohistochemical and immunofluorescence stain(s) in this case (if any), except where stated explicitly. The performance characteristics of the stain(s) cited in this report were developed and its performance characteristic determined by the Dermatopathology Laboratory at [facility], directed by Dr. Allan Mahmood. These tests need not be, and therefore are not, approved by the [place] Food and Drug Administration. The tests are used for clinical purposes. Billing Codes Specimen Charges Stain Charges 38990 1 1 4:46 PM CDT DERMATOPATHOLOGY LABORATORY Embedded Images 4:46 PM CDT DERMATOPATHOLOGY LABORATORY Pathology/Cytolog y TISSUE SPECIMEN FROM SKIN / Unknown 12/23/2020 12/27/2020 6:04 AM CDT us Chapincito Brasher MD LAB - PATHOLOGY/CYTOLOGY ORDER ACACIA Final Result DERMATOPATHOLOGY LABORATORY [facility] - Department of Dermatology [address] [phone] documented in this encounter Visit Diagnoses Not on filedocumented in this encounter Care Teams Plasterer Tender Relationship Specialty Start Date End Date Ji Lockhart DO [address] [facility] [address] [place] [address] PCP - General 02/15/22 documented as of this encounter
--- OUTSIDE RECORDS SUMMARY | 2025-01-19 15:54 | XMS_ITS | Clinical Summary ---
Author Organization [facility] Address [address] [place] [address] Phone Care Team Providers Care Weight Trainer Name Role Phone Joni Hsieh MD Primary Care Provider [phone] Allergies Active Allergy Reactions Criticality Noted Date Comments Codeine Anaphylaxis,Itching, Swell ing High 08/24/2016 Gabapentin Hives High 04/22/2020 Memantine Itching Low 06/05/2019 Morphine Unknown 12/27/2012 Penicillins Anaphylaxis,Itching, Swell ing High 08/24/2016 Prednisone Swelling,Muscle Pain Low 08/24/2016 Tramadol Hives High 04/22/2020 Triamterene-Hydrochlorothiaz id Unknown 12/27/2012 Medications calcium as carbonate (CALCI-CHEW) 1,250 mg (500 mg elemental) Tablet, Chewable Take 1 Tablet by mouth daily. Active rosuvastatin (CRESTOR) 5 mg tablet Take 5 mg by mouth daily. Active Cholecalciferol , Vitamin D3, 50 mcg (2,000 unit) Capsule Take 1 Tablet by mouth daily. 04/11/20 21 Active Farxiga 5 mg Tablet Take 5 mg by mouth daily. 10/21/19 22 Active meclizine (ANTIVERT) 12.5 mg tabletIndicatio ns:Chronic migraine without aura, not intractable, without status migrainosus,Diz zinesses TAKE 2 TABLETS BY MOUTH 3 TIMES A DAY NEEDED FOR DIZZINESS 20 Tablet 2 03/09/20 22 Active Tiadylt ER 240 mg Extended Release capsule Take 240 mg by mouth daily. 04/10/20 22 Active onabotulinumtox Devante (BOTOX) 200 unit Recon SolnIndications :Chronic migraine without aura, not intractable, without status migrainosus Inject up to 200u IM to the head and neck muscles every 12 weeks in the MD office. Discard unused portion. 1 Each 08/25/19 23 Active rimegepant (Nurtec ODT) 75 mg Tablet, Rapid Dissolve Take 1 Tablet (75 mg) by mouth see administration instructions. Take #1 pill as needed at the time of severe migraine, max 2x/week 15 Tablet 3 12/18/19 24 Active baclofen (LIORESAL) 10 mg tablet Take 2 Tablets (20 mg) by mouth daily at bedtime. May also take 1 Tablet (10 mg) 3 times daily as needed for Pain. Doses must be at least 4 hours apart. 450 Tablet 1 07/30/19 25 Active indomethacin (INDOCIN) 50 mg capsuleIndicati ons:Chronic migraine without aura, not intractable, without status migrainosus TAKE 1 CAPSULE BY MOUTH THREE TIMES A DAY NEEDED FOR PAIN UP TO 2 DAYS PER WEEK 25 Capsule 3 07/30/19 25 Active topiramate (TROKENDI XR) 50 mg Extended Release 24 hour capsule Take 1 Capsule (50 mg) by mouth daily. 30 Capsule 11 07/30/19 25 Active ondansetron (ZOFRAN ODT) 8 mg Tablet, Rapid Dissolve Dissolve 1 tablet on top of tongue then swallow with saliva every 8 hours as needed for nausea or vomiting 30 Tablet 2 08/21/19 25 Active Hospital, Clinic, or Other Facility Administered Medication Ordered Dose Route Frequency Start Date End Date Status onabotulinumtoxinA (BOTOX) injection 200 UnitsIndications:Ch ronic migraine without aura, not intractable, without status migrainosus 200 Units Intradermal EVERY 90 DAYS 02/24/2022 Active onabotulinumtoxinA (BOTOX) injection 200 UnitsIndications:Ch ronic migraine without aura, not intractable, without status migrainosus 200 Units Intradermal EVERY 90 DAYS 05/29/2022 Active onabotulinumtoxinA (BOTOX) injection 200 UnitsIndications:Ch ronic migraine without aura, not intractable, without status migrainosus 200 Units Intradermal EVERY 90 DAYS 08/25/2022 Active onabotulinumtoxinA (BOTOX) injection 200 UnitsIndications:Ch ronic migraine without aura, not intractable, without status migrainosus 200 Units Intradermal EVERY 90 DAYS 12/04/2022 Active onabotulinumtoxinA (BOTOX) injection 200 UnitsIndications:Ch ronic migraine without aura, not intractable, without status migrainosus 200 Units Intradermal EVERY 90 DAYS 02/27/2023 Active onabotulinumtoxinA (BOTOX) injection 200 UnitsIndications:Ch ronic migraine without aura, not intractable, without status migrainosus 200 Units Intradermal EVERY 90 DAYS 05/22/2023 Active onabotulinumtoxinA (BOTOX) injection 200 UnitsIndications:Ch ronic migraine without aura, not intractable, without status migrainosus 200 Units Intradermal EVERY 90 DAYS 08/16/2023 Active onabotulinumtoxinA (BOTOX) injection 200 UnitsIndications:Ch ronic migraine without aura, not intractable, without status migrainosus 200 Units Intradermal EVERY 90 DAYS 11/19/2023 Active onabotulinumtoxinA (BOTOX) injection 200 UnitsIndications:Ch ronic migraine without aura, not intractable, without status migrainosus 200 Units Intradermal EVERY 90 DAYS 02/12/2024 Active onabotulinumtoxinA (BOTOX) injection 200 UnitsIndications:Ch ronic migraine without aura, not intractable, without status migrainosus 200 Units Intradermal EVERY 90 DAYS 05/07/2024 Active onabotulinumtoxinA (BOTOX) injection 200 UnitsIndications:Ch ronic migraine without aura, not intractable, without status migrainosus 200 Units Intradermal EVERY 90 DAYS 07/30/2024 Active Active Problems Problem Noted Date Diagnosed Date Benign paroxysmal positional vertigo 12/18/2023 Tension headache 11/29/2022 Chronic migraine without aur a, not intractable, without status migrainosus 11/29/2022 Cervicovaginal cytology specimen unsatisfactory 07/06/2022 Menopause present 07/06/2022 Pain of breast 07/06/2022 Sprain of ankle 07/06/2022 Tinea cruris 07/06/2022 Aneurysm of basilar artery 04/24/2019 Intractable migraine without aura and with status migrainosus 08/24/2016 Bilateral occipital neuralgia 08/24/2016 Myofascial pain syndrome 08/24/2016 Chronic kidney disease, stage III (moderate) Acid reflux 11/06/2013 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): Description: right side 1980's Hypertension 12/27/2012 Overview (07/06/2022): Description: white coat component; dx prior to 05/23/2004 Migraine headache 12/27/2012 Encounters Date Type Department Care Team Description 01/15/2025 11:30 AM CDT Procedure visit [facility] [address] [facility] [address] [place] [address] Ruthy Salazar, VINCENT Chronic migraine without aura, not intractable, without status migrainosus (Primary Dx) 01/14/2025 External Device Data STL ABSTRACTION Provider, Abstract 01/14/2025 External Device Data STL ABSTRACTION Provider, Abstract 01/14/2025 External Device Data STL ABSTRACTION Provider, Abstract 01/13/2025 External Device Data STL ABSTRACTION Provider, Abstract 12/30/2024 External Device Data STL ABSTRACTION Provider, Abstract 12/23/2024 External Device Data STL ABSTRACTION Provider, Abstract 11/19/2024 1:00 PM CDT Procedure visit [facility] [address] [facility] [address] [place] [address] Ruthy Salazar, VINCENT Bilateral occipital neuralgia (Primary Dx); Chronic migraine without aura, not intractable, without status migrainosus; Myofascial pain syndrome 11/19/2024 External Device Data STL ABSTRACTION Provider, Abstract 11/18/2024 External Device Data STL ABSTRACTION Provider, Abstract 10/23/2024 11:30 AM CDT Procedure visit [facility] [address] [facility] [address] [place] [address] Ruthy Salazar, SUPERVISOR DUMPING Chronic migraine without aura, not intractable, without status migrainosus (Primary Dx) 10/22/2024 Orders Only [facility] [address] [place] [address] Ruthy Salazar, VINCENT Chronic migraine without aura, not intractable, without status migrainosus (Primary Dx) from Last 3 Months Family History Medical History Relation Name Comments Hypertension Brother Aneurysm Father Westley Porter Migraines Father Westley Porter Hypertension Maternal Grandmother Maylin Stern Alzheimer's Disease Mother Geetha Duque Cancer Mother Geetha Duque Heart Disease Mother Geetha Duque Hypertension Mother Geetha Duque Hypertension Sister Relation Name Status Comments Brother Father Westley Porter Maternal Grandmother Maylin Stern Mother Geetha Duque Sister Social History Tobacco Use Types Packs/Day Years Used Date Smoking Tobacco: Never Smokeless Tobacco: Never Tobacco Cessation:Counseling Given: Not Answered Alcohol Use Standard Drinks/Week Comments Not Currently 0 (1 standard drink = 0.6 oz pur e alcohol) Comments No Sex and Gender Information Value Date Recorded Sex Assigned at Not on file Legal Sex Female 5:11 AM NEUROSURGICAL NURSE PRACTITIONER Gender Identity Not on file Sexual Orientation Not on file Last Filed Vital Signs Vital Sign Reading Time Taken Comments Blood Pressure 118/82 01/15/2025 11:39 AM CDT Pulse 80 01/15/2025 11:39 AM CDT Temperature 36.8 C (98.2 F) 06/01/2022 9:44 AM NEUROSURGICAL NURSE PRACTITIONER Respiratory Rate 17 02/12/2024 11:37 AM CDT Oxygen Saturation 98% 01/15/2025 11:39 AM CDT Inhaled Oxygen Concentration - - Weight 66.2 kg (146 lb) 05/21/2024 10:14 AM NEUROSURGICAL NURSE PRACTITIONER Height 162.6 cm (5' 4) 05/21/2024 10:14 AM NEUROSURGICAL NURSE PRACTITIONER Body Mass Index 25.06 05/21/2024 10:14 AM NEUROSURGICAL NURSE PRACTITIONER Plan of Treatment Upcoming Encounters Date Type Department Care Team (Late st Contact Info) Description 02/16/2025 3:30 PM CDT Office Visit [facility] [address] [place] [address] Bradley Jordan MD [address] [facility] [address] [place] [address] 04/09/2025 11:00 AM CDT Procedure visit [facility] [address] [facility] [address] [place] [address] Ruthy Salazar, SUPERVISOR DUMPING [address] [facility] [address] [place] [address] 07/08/2025 10:00 AM NEUROSURGICAL NURSE PRACTITIONER Procedure visit [facility] [address] [facility] [address] [place] [address] Ruthy Salazar, SUPERVISOR DUMPING [address] [facility] [address] [place] [address] Health Maintenance Due Date Last Done Comments DTAP/TDAP/TD VACCINES (1 - Tdap) 12/02/1978 COLORECTAL SCREENING 12/02/2004 Colorectal Cancer Screening 12/02/2004 FIT-DNA Q 3 years 12/02/2004 FIT/FOBT Q 1 year 12/02/2004 Flex Sig/CT Colonography Q 5 years 12/02/2004 PNEUMOCOCCAL VACCINE 50+ YEA RS (1 of 1 - PCV) 12/02/2009 ZOSTER VACCINE (1 of 2) 12/02/2009 RSV VACCINE (60+ or ) (1 - Risk 60-74 years 1-dose series) 2019 OSTEOPOROSIS SCREENING 12/02/2024 INFLUENZA VACCINE (#1) 2025 BREAST CANCER SCREENING 01/06/2026 01/07/20 25, 01/06/2025, 12/23/2024, Additional history exists Procedures Procedure Name Priority Date/Time Associated Diagnosis Comments AK CHEMODERVATE FACIAL/TRIGEM/CERV MUSC MIGRAINE Routine 01/15/2025 1:16 PM CDT Chronic migraine without aura, not intractable, without status migrainosus AK INJECTION SINGLE/ENTERPRISE INTEGRATION ARCHITECT TRIGGER POINT 3/> MUSCLES Routine 11/19/2024 3:23 PM CDT Bilateral occipital neuralgia Chronic migraine without aura, not intractable, without status migrainosus Myofascial pain syndrome AK CHEMODERVATE FACIAL/TRIGEM/CERV MUSC MIGRAINE Routine 10/23/2024 12:09 PM CDT Chronic migraine without aura, not intractable, without status migrainosus from Last 3 Months Results * AK CHEMODERVATE FACIAL/TRIGEM/CERV MUSC MIGRAINE (01/15/2025 1:16 PM CDT) Narrative Ruthy Salazar NP - 01/15/2025 1:16 PM CDT Ruthy Salazar NP 01/15/2025 1:17 PM Botox Procedure Note Patient: Megha Matthews / 64 y.o. / female : 1960 BP 118/82 (BP Location: Left arm, Patient Position (BP): Sitting, BP Cuff Size: Adult) Pulse 80 LMP (LMP Unknown) SpO2 98% Procedure Performed: Botox for Chronic Migraine without Aura Date of Service: 01/15/2025 Provider: Ruthy Salazar NP Medical Necessity for Procedure: This patient has a history of intractable headache present for 15 or more days per month, at least 8 of which lasting for more than 4 hours a day and meeting migraine criteria for at least 3 months. They have tried at least 2 migraine prophylaxis medications. It is medically necessary to proceed with Botulinum toxin A injections per PREEMPT protocol in order to optimize this patient's treatment plan that will result in improved level of functioning and quality of life. 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 Study 1 and Study 2 included chronic migraine adults who were not using any concurrent headache prophylaxis, and during a 28-day baseline period had >15 headache days lasting 4 hours or more, with >50% being migraine/probable migraine. In both studies, patients were randomized to receive placebo or 155 Units to 195 Units BOTOX injections every 12 weeks for the 2-cycle, double-blind phase. Patients were allowed to use acute headache treatments during the study. BOTOX treatment demonstrated statistically significant and clinically meaningful improvements from baseline compared to placebo for espino efficacy variables (see Table 31). Patients treated with BOTOX had a significantly greater mean decrease from baseline in the frequency of headache days at most timepoints from Week 4 to Week 24 in Study 1 (Figure 11), and all timepoints from Week 4 to Week 24 in Study 2 (Figure 12), compared to placebo-treated patients. Diagram of Injection sites: Procedure Details: The patient was educated about the risks and benefits of the procedure prior to starting. The patient signed a form showing they received informed consent. Then the patient was given Botox as follows: OnabotulinumtoxinA-Botox 200 units (lot # [id number] ; expiration 04/27) was reconstituted using 4 ml preservative free saline to a final concentration of 50 units/ml. Using 1 ml syringes with 30 gauge 0.5 inch needles, and aseptic technique, Botox was administered as follows: Muscle # units Right # of inj sites Right # units Left # of inj sites Left Total units Theater Set Production Designer 5 1 5 1 10 Procerus 5 Frontalis 10 2 10 2 20 Temporalis 20 4 20 4 40 Occipitalis 15 3 15 3 30 Cervical Paraspinal 10 2 10 2 20 Trapezius 15 3 15 3 30 TOTAL units injected 155 Units wasted 45 Each injection was preceded by negative aspiration for blood. Patient tolerated the procedure well. Post-injection care instructions reviewed and patient discharged in good and stable condition. Medications Administered This Visit: Administrations This Visit onabotulinumtoxinA (BOTOX) injection 155 Units Admin Date 01/15/2025 Action Given Dose 155 Units Route IM Documented By Ruthy Salazar NP sodium chloride bacteriostatic 0.9 % injection 2-4 mL Admin Date 01/15/2025 Action Given Dose 4 mL Route See Admin Instructions Documented By Ruthy Salazar NP Were there any complications during this procedure or following previous Botox procedures for Chronic Migraine?: No Treatment Plan: Continue Botox every 12 weeks Follow up assessment scheduled 02/16/[address] Jordan Continue TPI prn- will schedule if headaches worsen Ruthy Salazar NP Ruthy Salazar NP PROCEDURE/MINOR BOWER RGICAL ORDERABLES Final Result * AK INJECTION SINGLE/ENTERPRISE INTEGRATION ARCHITECT TRIGGER POINT 3/> MUSCLES (11/19/2024 3:23 PM CDT) Narrative Ruthy Salazar NP - 11/19/2024 3:23 PM CDT Ruthy Salazar NP 11/19/2024 3:26 PM Procedure Note Patient: Megha Matthews / 63 y.o. / female : 1960 Procedure Performed: Trigger Point Injections Date of Service: 11/19/2024 Provider: Ruthy Salazar NP MA/PAVING AND SURFACING LABOURER/RN: Tomy Mei RN BP 110/72 (BP Location: Left arm, Patient Position (BP): Sitting, BP Cuff Size: Adult) Pulse 78 LMP (LMP Unknown) SpO2 95% Preoperative Diagnosis: ICD-10-CM ICD-9-CM 1. Bilateral occipital neuralgia M54.81 723.8 BUPivacaine PF (SENSORCAINE MPF) 5 mg/mL (0.5%) injection 75 mg INJECT TRIGGER POINT(S) 2. Chronic migraine without aura, not intractable, without status migrainosus G43.709 346.70 INJECT TRIGGER POINT(S) 3. Myofascial pain syndrome M79.18 729.1 INJECT TRIGGER POINT(S) Postoperative Diagnosis: ICD-10-CM ICD-9-CM 1. Bilateral occipital neuralgia M54.81 723.8 BUPivacaine PF (SENSORCAINE MPF) 5 mg/mL (0.5%) injection 75 mg INJECT TRIGGER POINT(S) 2. Chronic migraine without aura, not intractable, without status migrainosus G43.709 346.70 INJECT TRIGGER POINT(S) 3. Myofascial pain syndrome M79.18 729.1 INJECT TRIGGER POINT(S) /SAME Anesthesia: Local Estimated Blood Loss: Minimal. Surgical Safety Checklist: Pre-Incision Completed: Yes Confirmation of: Patient verified Site verified (if applicable) Laterality verified Procedure verified H&P Performed Prior to Procedure Surgical Safety Checklist Pre-Incision Completed Timeout - A timeout was performed to include correct patient verified, site identified and marked if appropriate, laterality verified, and surgical safety checklist were completed. FIRE RISKS (fire risks (skin prep, oxygen) and REMEDIATION TO PREVENT FIRE (ex: skin prep was fully dried per patient service specialist instructions per use) Yes Specimens Removed: None Procedure Details: After informed consent was obtained the patient was given Trigger Point Injections as follows: Procedure, risks, benefits and treatment alternatives were reviewed with patient. After verbal and written consent obtained, using sterile technique the trigger point areas were prepped. Bupivacaine (MARCAINE, SENSORCAINE) 0.5% (Lot # [id number] ; Expiration: 05/26) was used. The procedure was well tolerated. Muscle # of inj sites Left Total dose left (mg) # of inj sites Right Total dose right (mg) Total dose (mg) Theater Set Production Designer Procerus Frontalis Temporalis Occipitalis 4 20 5 25 45 Splenius capitis 2 5 5 Semispinalis capitis Trapezius 3 12.5 3 12.5 25 [place] Sternocleidomastoid TOTAL injected 75 mg Total wasted 25 mg Condition: Aftercare instructions reviewed with patient. Patient discharged in good and stable condition. COMPLICATIONS: No Post Procedure Follow Up: NA Plan: Follow up as needed for Trigger Point Injections (will wait to schedule another if symptoms worsen) Continue Botox every 12 weeks Follow up assessment scheduled 02/16/[address] Jordan Physician Responsible for Discharge: VINCENT Giang NP Ruthy Salazar NP PROCEDURE/MINOR BOWER RGICAL ORDERABLES Final Result * AK CHEMODERVATE FACIAL/TRIGEM/CERV MUSC MIGRAINE (10/23/2024 12:09 PM CDT) Narrative Ruthy Salazar NP - 10/23/2024 12:09 PM CDT Ruthy Salazar NP 10/23/2024 12:11 PM Botox Procedure Note Patient: Megha Matthews / 63 y.o. / female : 1960 BP 118/78 (BP Location: Left arm, Patient Position (BP): Sitting, BP Cuff Size: Adult) Pulse 81 LMP (LMP Unknown) SpO2 97% Procedure Performed: Botox for Chronic Migraine without Aura Date of Service: 10/23/2024 Provider: Ruthy Salazar NP Medical Necessity for Procedure: This patient has a history of intractable headache present for 15 or more days per month, at least 8 of which lasting for more than 4 hours a day and meeting migraine criteria for at least 3 months. They have tried at least 2 migraine prophylaxis medications. It is medically necessary to proceed with Botulinum toxin A injections per PREEMPT protocol in order to optimize this patient's treatment plan that will result in improved level of functioning and quality of life. 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 Study 1 and Study 2 included chronic migraine adults who were not using any concurrent headache prophylaxis, and during a 28-day baseline period had >15 headache days lasting 4 hours or more, with >50% being migraine/probable migraine. In both studies, patients were randomized to receive placebo or 155 Units to 195 Units BOTOX injections every 12 weeks for the 2-cycle, double-blind phase. Patients were allowed to use acute headache treatments during the study. BOTOX treatment demonstrated statistically significant and clinically meaningful improvements from baseline compared to placebo for espino efficacy variables (see Table 31). Patients treated with BOTOX had a significantly greater mean decrease from baseline in the frequency of headache days at most timepoints from Week 4 to Week 24 in Study 1 (Figure 11), and all timepoints from Week 4 to Week 24 in Study 2 (Figure 12), compared to placebo-treated patients. Diagram of Injection sites: Procedure Details: The patient was educated about the risks and benefits of the procedure prior to starting. The patient signed a form showing they received informed consent. Then the patient was given Botox as follows: OnabotulinumtoxinA-Botox 200 units (lot # [id number] ; expiration 10/26) was reconstituted using 4 ml preservative free saline to a final concentration of 50 units/ml. Using 1 ml syringes with 30 gauge 0.5 inch needles, and aseptic technique, Botox was administered as follows: Muscle # units Right # of inj sites Right # units Left # of inj sites Left Total units Theater Set Production Designer 5 1 5 1 10 Procerus 5 Frontalis 10 2 10 2 20 Temporalis 20 4 20 4 40 Occipitalis 15 3 15 3 30 Cervical Paraspinal 10 2 10 2 20 Trapezius 15 3 15 3 30 TOTAL units injected 155 Units wasted 45 Each injection was preceded by negative aspiration for blood. Patient tolerated the procedure well. Post-injection care instructions reviewed and patient discharged in good and stable condition. Medications Administered This Visit: Administrations This Visit onabotulinumtoxinA (BOTOX) injection 155 Units Admin Date 10/23/2024 Action Given Dose 155 Units Route IM Documented By Ruthy Salazar NP sodium chloride bacteriostatic 0.9 % injection 2-4 mL Admin Date 10/23/2024 Action Given Dose 4 mL Route See Admin Instructions Documented By Ruthy Salazar NP Were there any complications during this procedure or following previous Botox procedures for Chronic Migraine?: No Treatment Plan: Continue Botox every 12 weeks Follow up assessment scheduled 02/16/[address] Nikki MILLERI scheduled 11/19/24 Ruthy Salazar NP Ruthy Salazar NP PROCEDURE/MINOR BOWER RGICAL ORDERABLES Final Result from Last 3 Months Insurance [employer] BLUE ACCESS/TRUE BLUE PPO Care Teams Weight Trainer Relationship Specialty Start Date End Date Joni Hsieh MD [phone] [place] [address] PCP - General Internal Medicine 04/24/19
--- OUTSIDE RECORDS SUMMARY | 2025-01-19 15:54 | XMS_ITS | Clinical Summary ---
Author Organization [facility] [place] Address [address] [place] [address] Care Team Providers Care Barrel Tester And Drainer Name Role Phone Ji Lockhart Primary Care Provider [phone] Source Comments [facility],non-owned Affiliates and Associated Physician Practices is amultiple site organization consisting of ambulatory clinics and hospital sitesin [place], [place], [place] and [place]. This disclosure is being madepursuant to the Care Everywhere program and may not contain all information available regarding this patient. Last updated 18.[facility] [place] Allergies Active Allergy Reactions Criticality Noted Date Comments Codeine Anaphylaxis,Urticari a ,Itching,Swelling,Unk nown High 12/27/2012 Gabapentin Urticaria High 04/22/2020 Hydrochlorothiazide W-Triamterene Unknown 12/27/2012 Memantine Itching Low 06/05/2019 Morphine Unknown 12/27/2012 Penicillins Anaphylaxis,Urticari a ,Itching,Swelling,Unk nown High 12/27/2012 Prednisone Myalgias,Other,Swell i ng Low 08/07/2014 Tramadol Urticaria High 04/22/2020 Medications * Be aware that medications may not be up to date on this document. Alwaysverify current medications with the patient. topiramate ER 24hr (Trokendi XR) 50 MG capsule Take 25 mg by mouth as directed 2 Active Farxiga 5 MG tablet Take 1 (one) tablet by mouth once daily 2 Active rosuvastatin (Crestor) 5 MG tablet Take 1 (one) tablet by mouth once daily 2 Active rizatriptan, disintegrating, (Maxalt [employer]) 10 MG tablet Take 1 (one) tablet by mouth once daily 2 Active Cholecalciferol 50 MCG (2000 UT) Take 1 tablet by mouth once daily 1 Active baclofen (Lioresal) 20 MG tablet Take 1 (one) tablet by mouth once daily May cause drowsiness. Active dilTIAZem ER 24hr (Tiazac) 240 MG capsule Take 1 (one) capsule by mouth once daily 2 Active clobetasol (Temovate) 0.05 % ointment Apply 1 Dose to affected area as directed 2 Active indomethacin (Indocin) 50 MG capsule Take 1 (one) capsule by mouth once daily 2 Active onabotulinumtox in A (Botox) 200 units injection 200 (two hundred) Units by Intradermal route Every 90 days 2 Active Family History Medical History Relation Name Comments CVA Brother Cancer - Other Brother Diabetes - Type 2 Brother CVA Father Dementia Mother Relation Name Status Comments Brother Father Mother Social History Tobacco Use Types Packs/Day Years Used Date Smoking Tobacco: Never Smokeless Tobacco: Never Tobacco Cessation:Counseling Given: Not Answered Alcohol Use Standard Drinks/Week Comments Never 0 (1 standard drink = 0.6 oz pur e alcohol) Comments Unknown Sex and Gender Information Value Date Recorded Sex Assigned at Not on file Legal Sex Female 2:51 PM CDT Gender Identity Not on file Sexual Orientation Not on file Last Filed Vital Signs Vital Sign Reading Time Taken Comments Blood Pressure 135/78 06/15/2022 3:57 PM SUPERVISOR ASSEMBLY DEPARTMENT Pulse 83 06/15/2022 3:57 PM SUPERVISOR ASSEMBLY DEPARTMENT Temperature 36.2 C (97.2 F) 04/05/2022 3:32 PM CDT Respiratory Rate - - Oxygen Saturation - - Inhaled Oxygen Concentration - - Weight 61.7 kg (136 lb) 06/15/2022 3:57 PM SUPERVISOR ASSEMBLY DEPARTMENT Height 160 cm (5' 3) 06/15/2022 3:57 PM SUPERVISOR ASSEMBLY DEPARTMENT Body Mass Index 24.09 06/15/2022 3:57 PM SUPERVISOR ASSEMBLY DEPARTMENT Plan of Treatment Health Maintenance Due Date Last Done Comments BONE DENSITY TESTING 1960 COLOGUARD (AGES 45-75) - COL ON CA SCREENING 1960 COLON MONITORING 1960 COLONOSCOPY - COLON CA SCREENING 1959 CT COLONOGRAPHY - COLON CA SCREENING 1960 Colorectal Cancer Screening 1960 FIT - COLON CA SCREENING 1959 FLEX SIG - COLON CA SCREENING 1960 HIV SCREENING 12/02/1974 HEPATITIS C SCREENING 11/28/1977 DTAP/TDAP/TD VACCINES (1 - Tdap) 12/02/1978 PAP SMEAR 12/02/1980 PNEUMOCOCCAL VACCINE 50+ (1 of 1 - PCV) 12/02/2009 ZOSTER VACCINE (1 of 2) 12/02/2009 Respiratory Syncytial Virus (RSV) Vaccine Pt: or over 60 yrs (1 - Risk 60-74 years 1-dose series) 2019 MAMMOGRAM 06/30/2023 06/30/2021 COVID-19 VACCINE (1 - 2023-2 5 season) 2024 DEPRESSION SCREENING 07/02/2024 INFLUENZA VACCINE (#1) 2025 HEPATITIS B VACCINE Aged Out No longe r eligible based on patient's age to complete this topic HIB VACCINE Aged Out No longer eligi ble based on patient's age to complete this topic HPV VACCINE Aged Out No longer eligi ble based on patient's age to complete this topic MENINGOCOCCAL (Group B) VACC INE SHARED DECISION-MAKING Aged Out No longer eligibl e based on patient's age to complete this topic MENINGOCOCCAL GROUPS A/C/Y/W VACCINE Aged Out No longer eligible b ased on patient's age to complete this topic Insurance ANTHEM Care Teams Barrel Tester And Drainer Relationship Specialty Start Date End Date Ji Lockhart DO [address] [place] [address] PCP - General 02/15/22
--- OUTSIDE RECORDS SUMMARY | 2025-01-19 15:54 | XMS_ITS | Clinical Summary ---
Author Organization [facility] Address [facility] [place] [address] Care Team Providers Care Technician Anatomic Pathology Name Role Phone Joni Hsieh MD Primary Care Provider [phone] Allergies Active Allergy Reactions Criticality Noted Date Comments Codeine Itching,Swelling,Hives High 04/08/2020 Gabapentin Hives High 04/22/2020 Hydrochlorothiazide-Triamter sada Unknown 12/27/2012 Memantine Itching 06/05/2019 Morphine Unknown 12/27/2012 Morphine And Codeine Unknown 12/27/2012 Penicillins Anaphylaxis,Itching, Swell ing,Unknown High 12/27/2012 Prednisone Myalgias 08/07/2014 Tramadol Hives High 04/22/2020 Medications Ascorbic Acid (VITAMIN C) 500 MG Chew Tab Chew 1 tablet by mouth daily. 4 Active baclofen 10 MG tablet 20 mg daily. 0 Active calcium carbonate 1250 (500 Ca) MG chewable tablet Chew 1 tablet by mouth daily. Active dilTIAZem CD 240 MG 24 hr capsule Take 1 capsule by mouth daily. 2 Active estrogens, conjugated,-methyl TESTOSTERone (COVARYX HS) 0.625-1.25 MG tablet TK 1 T PO QD 7 Active fluconazole 150 MG tablet TK 1 T PO ONCE 9 Active fluticasone propionate 50 MCG/ACT nasal spray 1 spray by Nasal route 2 (two) times daily. 4 Active ibuprofen 600 MG tablet TK 1 T PO Q 6 H WF PRF PAIN 9 Active indomethacin 50 MG capsule TAKE 1 CAPSULE BY MOUTH THREE TIMES DAILY NEEDED FOR PAIN. MAY TAKE WITH TIZANIDINE 0 Active memantine 10 MG tablet Take 10 mg by mouth daily. 9 Active nortriptyline 10 MG capsule Take 2 capsules by mouth. 3 Active BOTOX 200 units injection 0 Active ondansetron [address] 8 mg inside cheek every 8 (eight) hours as needed. 8 Active rosuvastatin 5 MG tablet Take 5 mg by mouth daily. 0 Active TROKENDI XR 100 MG 24 hr capsule Take 100 mg by mouth nightly at bedtime. 9 Active estradiol 0.1 MG/GM vaginal cream INSERT 1 G 3 TIMES A WEEK BY VAGINAL ROUTE FOR 90 DAYS. 0 Active triamcinolone 0.1 % cream Apply topically 2 (two) times daily. 15 g 1 Active Cholecalciferol (VITAMIN D) 50 MCG (1999 UT) CapIndications:Vit santos D insufficiency Take 1 tablet by mouth daily. 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 Hypertension 12/27/2012 Overview (01/05/2020): Description: white coat component; dx prior to 05/23/2004 Migraine headache 12/27/2012 Family History Medical History Relation Comments Cancer Brother non hodgkin's Aneurysm Father Cancer Mother throat Stroke Sister Relation Status Comments Brother Father Mother Sister Social History Tobacco Use Types Packs/Day Years Used Date Smoking Tobacco: Never Smokeless Tobacco: Never Tobacco Cessation:Counseling Given: No Alcohol Use Standard Drinks/Week Comments Yes 0 (1 standard drink = 0.6 oz pur e alcohol) rarely AUDIT-C Answer Date Recorded Frequency of Alcohol Consumption Never 01/05/2020 Average Number of Drinks Not on file 07/06/2 020 Frequency of Binge Drinking Not on file 12/2019 PHQ-2 Answer Date Recorded PHQ-2 Score - If the patient scores above 3, please move on to questions 3-9 0 04/08/2020 Comments No Sex and Gender Information Value Date Recorded Sex Assigned at Not on file Legal Sex Female 8:24 PM CDT Gender Identity Not on file Sexual Orientation Not on file Last Filed Vital Signs Vital Sign Reading Time Taken Comments Blood Pressure 118/68 04/11/2021 3:05 PM CDT Pulse 68 04/11/2021 3:05 PM CDT Temperature 36.3 C (97.3 F) 04/11/2021 3:05 PM CDT Respiratory Rate 18 04/11/2021 3:05 PM CDT Oxygen Saturation 97% 04/11/2021 3:05 PM CDT Inhaled Oxygen Concentration - - Weight 59.5 kg (131 lb 3.2 oz) 04/11/2021 3:05 P M CDT Height 160 cm (5' 3) 04/11/2021 3:05 PM CDT Body Mass Index 23.24 04/11/2021 3:05 PM CDT Plan of Treatment Health Maintenance Due Date Last Done Comments Colorectal Cancer Screening Colonoscopy (10 Years) 1960 Hepatitis C 12/02/1977 Mammogram Screening 1999 DTaP, Tdap and Td Vaccines ( 1 - Tdap) 05/03/2004 05/02/2004 Pneumococcal Vaccine: 50+ Ye ars (1 of 1 - PCV) 12/02/2009 Zoster Vaccines (1 of 2) 12/02/2009 COVID-19 Vaccine (2 - 2023-2 5 season) 2024 09/07/2020 Dexa Scan (General) 12/02/2024 RSV Immunization or 60+ Years (1 - 1-dose 75+ series) 12/02/2034 Meningococcal B Vaccine Aged Out No l onger eligible based on patient's age to complete this topic Meningococcal Vaccine Aged Out No nicole tamara eligible based on patient's age to complete this topic RSV Immunizations Under 20 Months Aged Out No longer eligible based on patient's age to complete this topic Additional Health Concerns Infection Onset Date Last Indicated 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
--- OUTSIDE RECORDS SUMMARY | 2025-01-19 15:54 | XMS_ITS | Continuity of Care Document ---
Author Organization [facility] DI[place] Address [address] [place] [phone] Phone Care Team Providers Care Wild Life Manager Name Role Phone NEPTALI ABBOTT, WEI Unavailable Unavailable Allergies, Adverse Reactions, Alerts Substance Reaction Status Criticality Cephalosporins Swelling & can't breathe Active N o Information Penicillins Swelling & can't breathe Active No Information Medications Medication Instructions Dosage Effective Dates (start - stop) Status Comments prednisolone acetate 1 % eye drops,suspension instill 1 drop by ophthalmic route 4 times every day in left eye 1 drop - Active acyclovir 400 mg tablet take 1 tablet by oral route 2 times every day 400 MG - Active HYDROCHLOROTHIAZIDE (unknown strength) take 1 tablet by oral route every day Not Available - Active METOPROLOL SUCCINATE (unknown strength) take 1 tablet by oral route every day Not Available - Active multivitamin tablet - Active ATORVASTATIN CALCIUM (unknown strength) take 1 tablet by oral route every day Not Available - Active Procedures Procedure Date OFFICE VISIT, EST OFFICE/OUTPATIENT VISIT, NEW EYE EXAM ESTABLISHED PAT OFFICE/OUTPATIENT VISIT, NEW Advance Directives Directive Yes / No Effective Date File Name No Information Encounters Encounter Description Practice Location Reason(s) For Visit Diagnoses Date Provider Providers Copied on Encounter OFFICE VISIT, EST [facility], [address], [place], [place], [id number], [place] tel:[phone] [facility] 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 [address] [facility], [place], [place], [id number]. tel:[phone] OFFICE/OUTPAT IENT VISIT, [facility], [address] [place] [address], [place], [place], [id number], [place] tel:[phone] [facility] uveitis (chief complaint) Herpesviral iridocyclitis 2 VAKHARIA WEI. [address] [facility], [place], [place], [id number]. tel:[phone] [facility], [address] [place] [address], [place], [place], [id number], [place] tel:[phone] [facility] discomfort and blur (chief complaint) Dry Eye Syndrome 4 VAKHARIA WEI. [address] [facility], [place], [place], [id number]. tel:[phone] Referring Provider: Bruce Atkinson , [place], [address]. tel:[phone] OFFICE/OUTPAT IENT VISIT, [facility], [address] [place] [address], [place], [place], [id number], [place] tel:[phone] [facility] Iris Lesion OS (chief complaint) Benign neoplasm of eye, part unspecified 4 VAKHARIA WEI. [address] [place] [address], [place], [place], [id number]. tel:[phone] Referring Provider: [place], [address]. tel:[phone] Family History Family Member Type Diagnosis Age At Onset Problem No family history of Blindne ss Payers Payer name Insurance type Covered alliance party ID Authornataliea jeff(s) [facility] [id number] Social History Type Description Quantity Date Captured Comments Alcohol Use Details Unknown Caffeine Use Details Unknown Tobacco Use Status No Information Smoking Status No Information Sex Female Chief Complaint And Reason For Visit From encounter dated '01/03/2022 14:00'. Recheck OS HSV Uveitis (chief complaint). Description: Patient notes OS is feeling somewhat better.Still taking ACV PO bid, PA 1% qid OS and Timolol OS bid. Reason For Referral Reason For Referral No Information History Of Present Illness Encounter Date Complaint History Of Prese nt Illness Recheck OS HSV Uveitis Patient n otes OS is feeling somewhat better. Still taking ACV PO bid, PA 1% qid OS and Timolol OS bid. uveitis The 60 year old female presents for evaluation of possible uveitis in the left eye. Over the past few months, the left eye has pressure and pain. Dr. Ahsan Mercedes has been treating her. Her IOP OS was elevated and she was on drops for this, but now off those. She was suppose to start a new drop 11/29/21, but her pharmacy had to order it. Today the OS feels tired and irritated. discomfort and blur The 53 year old female presents for evaluation of discomfort and blur in the left eye. It started about 3 day(s) ago. It occurs persistently. The onset was progressive. It affects both near and far vision. The symptom is frequent. The condition is unstable. The condition is described as foreign body sensation. In addition, the condition is associated with when eye(s) are open. 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 She has been using Visine 1-3 x daily (to get red out). She does not have Systane at this time.The discomfort in OS causes headache on left side of forehead. Iris Lesion OS The 53 year old female presents for evaluation of Iris Lesion OS in the left eye. It started about 6 month(s) ago. It occurs all the time. The onset was gradual. It affects near vision. The symptom is constant. The condition is limiting patient's ability to read. The condition is described as blurring. In addition, the condition is associated with when eye(s) are open. OS Blurry all the time. Feels irritated off & on x 6months. In Jun 2010 woke up with red eye. Went to [facility] said had pink eye, perscribed an eye drop. Pt decided to go see , red eye & pain (has high tolerance for pain) IOP was very high. Was perscribed eye drop to lower IOP & systance. Since then eye gets red off & on. 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 Had irritation OS x3 days, no signs of HSV iritis. Long d/w pt re condition, use pres-free ATs qid OS, pt to call in 1 wk if no improvement. 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 DDx includes iris neoplasm, likely benign, not extending into angle. Long discussion with patient regarding condition, advised her that there is no risk as the lesion does not extend into the angle, Dr. Alonzo to follow, refer here if any growth noted. 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
--- OUTSIDE RECORDS SUMMARY | 2025-01-19 15:54 | XMS_ITS | Referral Summary ---
Author Organization [facility] [address] Address [address] [place] [address] Care Team Providers Care Restorative Coordinator Name Role Phone Ahsan Naik MD Primary Care Provider [phone] Encounters Date Type Department Care Team Description 01/09/2025 Telephone [facility] ([facility]) [address] [place] [address] Thu Barajas Test Results (Right breast biopsy 01/06/25) 01/06/2025 12:23 PM CDT - 01/06/2025 11:59 PM CDT Hospital Encounter [facility] ([facility]) [address] [place] [id number] Abnormal mammogram Discharge Disposition: Discharge to home or self care 01/06/2025 10:35 AM CDT - 01/06/2025 11:59 PM CDT Hospital Encounter [facility] ([facility]) [address] [place] [address] Abnormal mammogram Discharge Disposition: Discharge to home or self care 12/23/2024 3:09 PM CDT - 12/23/2024 11:59 PM CDT Hospital Encounter [facility] ([facility]) [address] [place] [address] Abnormality of right breast on screening mammography Discharge Disposition: Discharge to home or self care 12/10/2024 11:00 AM CDT - 12/10/2024 11:59 PM CDT Hospital Encounter [address] [place] [address] Screening mammogram, encounter for Discharge Disposition: Discharge to home or self care from Last 3 Months Allergies Active Allergy Reactions Criticality Noted Date [...] Active Active Problems No known active problems Social History Tobacco Use Types Packs/Day Years [...] on file 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 Gender Identity Not on file Sexual Orientation [...] 12/10/2024 11:06 AM CDT Plan of Treatment Not on file Medical Devices Implanted Type Area Brazing Machine Tender Device Identifier Shelf Expiration Date Model / Serial / Lot [employer] Trimark Rigid End Hourglass Marker Breast Biopsy Titanium [id number] - [id number] Implanted:Qty: 1 on 01/06/2025 at [facility] Right: Breast [employer] [id number] 09/10/2026 ERIBERTO-E [id number] / / [id number] Procedures Procedure Name Priority Date/Time Associated Diagnosis [...] will be discussed with the patient by [facility] or referring provider staff and [...] by: Shanae Fonseca M.D. Filiberto Rao MD [facility] MAMMO PROCEDURES Edited Result - Final * Surgical pathology (01/06/2025 12:02 PM CDT) Tissue (Breast biopsy, needle core) 01/06/2025 12:02 PM CDT Comment:RIGHT stereotactic b reast biopsy, lower inner calcs, from below approach, BIRADS 4A Narrative PATHOLOGY [facility] - 01/07/2025 2:06 PM CDT EPIC results best viewed via link to PDF [facility] of Surgical Pathology [address] [place] [address] Note to Patients: This report may contain [...] Gender: F : 1960 (Age: 64) Address: [address] [place], [place] [address] Hospital #: [id number] Taken:01/06/2025 Received:01/06/2025 Reported: 01/07/2025 Patient Type: [facility] Ancillary Service: UNKNOWN Location: Physician(s): Ahsan Naik M.D. Diagnosis: Breast, right, lower inner, stereotactic guided core biopsy - Calcifications associated with fibroadenomatoid change - No atypical or malignant findings ud/01/07/2025 09:24 By this signature, I attest that [...] Surgical Pathology and Flow Cytometry Departments at [facility] as part of an ongoing quality and reliability engineer program and in compliance with federally mandated [...] Surgical Pathology and Flow Cytometry Departments of [facility]. It has not been cleared or approved by the U. S. Food and Drug Administration. IMAGES AND SCANNED DOCUMENTS, IF INCLUDED, ONLY VIEWABLE IN PDF VERSION OF REPORT Filiberto Rao MD LAB PATHOLOGY ORDERABLES Critical access hospital Result PATHOLOGY [facility] 3rd Floor [place], [place] [phone] * (ABNORMAL) Diagnostic Mammogram Right W Shola [...] [facility]. This facility will [...] lower inner right breast at posterior depth. Filiberto Rao MD [facility] MAMMO PROCEDURES Final Result * (ABNORMAL) Screening [...] no suspicious mass, calcification, or architectural distortion. Self Screening Mammogram IMG MAMMO PROCEDURES Fi nal Result from Last 3 Months Insurance [facility] CHO[facility] H[facility]/PPO Address: [address] [address] [place] [address] BLUE [facility] BLUE ACCESS ID MEDICARE [facility] MEDICARE MRA Care Teams Restorative Coordinator Relationship Specialty Start Date End Date Ahsan Naik MD [address] [place] [address] PCP - General Family Practice 12/01/24
--- OUTSIDE RECORDS SUMMARY | 2025-01-19 15:54 | XMS_ITS | Clinical Summary ---
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 Gender Identity Not on file Sexual Orientation Not on file Plan of Treatment Health Maintenance Due Date Last Done Comments Hepatitis C Virus (HCV) Screening 1960 TdaP Immunization 1960 Pap Smear 12/02/1980 Cervical Cancer Screening (CCS) 12/02/1989 HPV/Cotest 12/02/1989 Colonoscopy 12/02/2004 Colorectal Cancer Screening 12/02/2004 Cologuard 12/02/2009 Immunochemical Fecal Occult Blood 12/02/2009 Mammogram 12/02/2009 Pneumococcal Immunization (5 0+ years) (1 of 1 - PCV) 12/02/2009 Zoster Immunization (1 of 2) 12/02/2009 Influenza Immunization (#1) 2024 SARS-COV-2 Immunization (2 - season) 2024 09/07/2020 Respiratory Syncytial Virus (RSV) Immunization (Adult) (1 - 1-dose 75+ series) 12/02/2034 Hepatitis B Immunization Aged Out No longer eligible based on patient's age to complete this topic Meningococcal Immunization (ACWY) Aged Out No longer eligible based on patient's age to complete this topic Pneumococcal Immunization Combined Aged Out No longer eligible based on patient's age to complete this topic Rotavirus Immunization Aged Out No lo nger eligible based on patient's age to complete this topic
--- OUTSIDE RECORDS SUMMARY | 2025-01-19 15:55 | XMS_ITS | Encounter Summary ---
Author Organization [facility] Address [address] [place] [address] Care Team Providers Care Claims Account Manager Name Role Phone Joni Hsieh MD Primary Care Provider [phone] Reason for Visit * Reason Comments Medication Refill Encounter Details Date Type Department Care Team (Late Contact Info) Description 03/20/2019 Refill [facility] [place] [facility] [address] [facility] [address] [place] [address] Ruthy Salazar, VINCENT [address] 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 documented in this encounter Plan of Treatment Upcoming Encounters Date Type Department Care Team (Late Contact Info) Description 02/16/2025 3:30 PM CDT Office Visit [facility] [address] [address] [place] [address] Bradley Jordan MD [address] [facility] [address] [place] [address] 04/09/2025 11:00 AM CDT Procedure visit [facility] Neurology [address] [place] [address] Ruthy Salazar, VINCENT [address] [facility] [address] [place] [address] 07/08/2025 10:00 AM DOUBLE END CHUCKING MACHINE OPERATOR Procedure visit [facility] Neurology [address] [facility] [address] [address] [address] [place] [address] Ruthy Salazar NP [address] [facility] [address] [place] [address] documented as of this encounter Visit Diagnoses Not on filedocumented in this encounter Care Teams Claims Account Manager Relationship Specialty Start Date End Date Joni Hsieh MD [address] [place] [phone] PCP - General Internal Medicine 04/24/19 documented as of this encounter
--- OUTSIDE RECORDS SUMMARY | 2025-01-19 15:55 | XMS_ITS | Encounter Summary ---
Author Organization [facility] Address [facility] [place] [address] Care Team Providers Care Planning Technician Name Role Phone Arturo Rolon DO Primary Care Provider [phone] Joni Hsieh MD Primary Care Provider [phone] None, Provider Primary Care Provider Unavaila ble Joni Hsieh MD Primary Care Provider [phone] Encounter Details Date Type Department Care Team (Latest Contact Info) Description 05/07/2018 Abstract [facility] Franklin Heredia MD Social History Tobacco Use Types Packs/Day Years Used Date Smoking Tobacco: Never Assessed Comments Unknown Sex and Gender Information Value Date Recorded Sex Assigned at Not on file Legal Sex Female 8:24 PM CDT Gender Identity Not on file Sexual Orientation Not on file documented as of this encounter Plan of Treatment Not on file documented as of this encounter Visit Diagnoses Not on filedocumented in this encounter Additional Health Concerns Infection Onset Date Last Indicated Resolved Time MRSA 02/07/2017 02/07/2017 COVID-19 Rule Out 02/25/2021 02/25/2021 02/25/2021 9:53 PM CDT documented as of this encounter Care Teams Planning Technician Relationship Specialty Start Date End Date Arturo Rolon DO [address] [place] [address] PCP - General 10/25/15 01/04/20 Joni Hsieh MD [address] [place] [address] PCP - General INTERNAL MEDICINE 01/05/20 01/05/20 None, MD Jaqui PCP - General 04/08/20 01/04/21 Joni Hsieh MD [address] [place] [address] PCP - General INTERNAL MEDICINE 01/05/21 documented as of this encounter
--- OUTSIDE RECORDS SUMMARY | 2025-01-19 17:26 | XMS_ITS | Referral Summary ---
Author Organization [facility] [address] [facility] Address [address] [place] [address] Care Team Providers Care Index Editor Name Role Phone Ahsan Naik MD Primary Care Provider [phone] Encounters Date Type Department Care Team Description 01/09/2025 Telephone [facility] ([facility]) [address] [place] [address] Tuh Barajas Test Results (Right breast biopsy 01/06/25) 01/06/2025 12:23 PM CDT - 01/06/2025 11:59 PM CDT Hospital Encounter [facility] ([facility]) [address] [place] [address] Abnormal mammogram Discharge Disposition: Discharge to home or self care 01/06/2025 10:35 AM CDT - 01/06/2025 11:59 PM CDT Hospital Encounter [facility] ([facility]) [address] [place] [address] Abnormal mammogram Discharge Disposition: Discharge to home or self care 12/23/2024 3:09 PM CDT - 12/23/2024 11:59 PM CDT Hospital Encounter [facility] ([facility]) [address] [place] [address] Abnormality of right breast on screening mammography Discharge Disposition: Discharge to home or self care 12/10/2024 11:00 AM CDT - 12/10/2024 11:59 PM CDT Hospital Encounter [address] [place] [address] Screening mammogram, encounter for Discharge Disposition: Discharge [...] on file 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 Gender Identity Not on file Sexual Orientation [...] on file Medical Devices Implanted Type Area Optics Technical Officer Device Identifier Shelf Expiration Date Model / Serial / Lot [employer] Trimark Rigid End Hourglass Marker Breast Biopsy Titanium Ypzagla-Afrww-5 s-13 - [id number] Implanted:Qty: 1 on 01/06/2025 at [facility] Right: Breast [employer] [id number] 09/10/2026 ERIBERTO-E VIVA-2S-1 3 / / [id number] Procedures Procedure Name Priority Date/Time Associated Diagnosis [...] present and participated in the procedure. us Filbierto Rao MD IMG MAMMO PROCEDURES Edited Result [...] will be discussed with the patient by [facility] or referring provider staff and will [...] by: Shanae Fonseca M.D. Filiberto Rao MD [facility] MAMMO PROCEDURES Edited Result - Final * Surgical pathology (01/06/2025 12:02 PM CDT) Tissue (Breast biopsy, needle core) 01/06/2025 12:02 PM CDT Comment:RIGHT stereotactic b reast biopsy, lower inner calcs, from below approach, BIRADS 4A Narrative PATHOLOGY [facility] - 01/07/2025 2:06 PM CDT EPIC results best viewed via link to PDF [facility] of Surgical Path[place] [address] [place] [address] Note to Patients: This report may contain [...] Gender: F : 1960 (Age: 64) Address: [address] [place], [place] [address] Hospital #: [id number] Taken:01/06/2025 Received:01/06/2025 Reported: 01/07/2025 Patient Type: [facility] Ancillary Service: UNKNOWN Location: Physician(s): [...] Surgical Pathology and Flow Cytometry Departments at [facility] as part of an ongoing quality improvement engineer program and in compliance with federally [...] Surgical Pathology and Flow Cytometry Departments of [facility]. It has not been cleared or approved by the U. S. Food and Drug Administration. IMAGES AND SCANNED DOCUMENTS, IF INCLUDED, ONLY VIEWABLE IN PDF VERSION OF REPORT Filiberto Rao MD LAB PATHOLOGY ORDERABLES [facility] Result PATHOLOGY [facility] 3rd Floor [place], [place] [phone] * (ABNORMAL) Diagnostic Mammogram Right W Shola [...] breast at posterior depth. Filiberto Rao MD [facility] MAMMO PROCEDURES Final Result * (ABNORMAL) [...] nal Result from Last 3 Months Insurance [facility] CHOICE PLUS BLUE [facility] BLUE [place]ESS [place] MEDICARE [facility] MEDICARE [facility] Care Teams Index Editor Relationship Specialty Start Date End Date Ahsan Naik MD [address] [place] [address] PCP - General Family Practice 12/01/24
--- OUTSIDE RECORDS SUMMARY | 2025-01-19 17:26 | XMS_ITS | Encounter Summary ---
Author Organization [facility] Address [address] [facility] [place] [address] Care Team Providers Care Service Consultant Name Role Phone iJ Lockhart DO Primary Care Provider [phone] Encounter Details Date Type Department Care Team (Late st Contact Info) Description 12/27/2020 Lab Requisition [facility] DermPath Lab [address] [facility] [place] [phone] Chapincito Brasher MD [address] [place] [address] Social History Tobacco Use Types Packs/Day Years [...] AM CDT) Case Report Dermatopathology Report Case: [id number] Authorizing Provider: Chapincito Brasher MD Collected: 12/23/2020 12:00 AM Ordering Location: [facility] Lab Received: 12/27/2020 06:04 AM Pathologist: David Mahmood MD Specimen: Skin, mid back 06/29/202 1 4:46 PM CDT DERMATOPATHOLOGY LABORATORY Final Diagnosis Specimen A. SKIN, mid back: EPIDERMOID CYST (L72.0) NOT PRESENT AT SAMPLED MARGIN 1 4:46 PM CDT DERMATOPATHOLOGY LABORATORY at 1646 CDT Clinical History E cyst. Check margins. Path# [id number]. 1 4:46 PM CDT DERMATOPATHOLOGY LABORATORY Gross Description Specimen A: Received is one formalin filled container labeled with the patient's name and designated mid back. The specimen consists of a [id number] excision of skin. The specimen is bisected [...] characteristic determined by the Dermatopathology Laboratory at [facility], directed by Dr. Allan Mahmood. These tests need not be, and therefore are not, approved by the [place] Food and Drug Administration. The tests are used for clinical purposes. Billing Codes Specimen Charges Stain Charges 53566 1 1 4:46 PM CDT DERMATOPATHOLOGY LABORATORY Embedded Images 4:46 PM CDT DERMATOPATHOLOGY LABORATORY Pathology/Cytolog y TISSUE SPECIMEN FROM SKIN / Unknown 12/23/2020 12/27/2020 6:04 AM CDT us Chapincito Brasher MD LAB - PATHOLOGY/CYTOLOGY ORDER ACACIA Final Result DERMATOPATHOLOGY LABORATORY [facility] - Department of Dermatology [address], [address] [phone] documented in this encounter Visit Diagnoses Not on filedocumented in this encounter Care Teams Service Consultant Relationship Specialty Start Date End Date Ji Lockhart DO [address] [facility] [address] [address] PCP - General 02/15/22 documented as of this encounter
--- OUTSIDE RECORDS SUMMARY | 2025-01-19 17:26 | XMS_ITS | Clinical Summary ---
Author Organization [place] [id number] [facility] Address [address] [place] [address] Care Team Providers Care Geographic Information Systems Manager Name Role Phone Ahsan Naik MD Primary Care Provider [phone] Allergies Active Allergy Reactions Criticality Noted Date [...] Type Department Care Team Description 01/09/2025 Telephone [facility] ([facility]) [address] [place] [address] Thu Barajas Test Results (Right breast biopsy 01/06/25) 01/06/2025 12:23 PM CDT - 01/06/2025 11:59 PM CDT Hospital Encounter [facility] ([facility]) [address] [place], [place] [id number] Abnormal mammogram Discharge Disposition: Discharge to home or self care 01/06/2025 10:35 AM CDT - 01/06/2025 11:59 PM CDT Hospital Encounter [facility] Advanced [facility] Breast Imaging [facility] Advanced [facility] ([facility]) [address] [place] [address] Abnormal mammogram Discharge Disposition: Discharge to home or self care 12/23/2024 3:09 PM CDT - 12/23/2024 11:59 PM CDT Hospital Encounter [facility] Breast Imaging [facility] Advanced [facility] ([facility]) [address] [place] [address] Abnormality of right breast on screening mammography Discharge Disposition: Discharge to home or self care 12/10/2024 11:00 AM CDT - 12/10/2024 11:59 PM CDT Hospital Encounter [address] [place] [address] Screening mammogram, encounter for Discharge Disposition: Discharge [...] on file 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 Gender Identity Not on file Sexual Orientation [...] history exists Medical Devices Implanted Type Area Faa Certified Powerplant Mechanic Device Identifier Shelf Expiration Date Model / Serial / Lot [employer] Partnership LIKECHARITY Rigid End Hourglass Marker Breast Biopsy Titanium Mcspmne-Sxvsg-7 s-13 - [id number] Implanted:Qty: 1 on 01/06/2025 at [facility] Right: Breast [employer] [id number] 09/10/2026 YYogaARK-E VIVA-2S-1 3 / / [id number] Procedures Procedure Name Priority Date/Time Associated Diagnosis [...] be discussed with the patient by Breast [facility] or referring provider staff and will [...] from below approach, BIRADS 4A Narrative PATHOLOGY [facility] - 01/07/2025 2:06 PM CDT EPIC results best viewed via link to PDF [facility] [place] [address] Note to Patients: This report may contain [...] Gender: F : 1960 (Age: 64) Address: [address] [place], [place] [address] Hospital #: [id number] Taken:01/06/2025 Received:01/06/2025 Reported: 01/07/2025 Patient Type: [facility] Ancillary Service: UNKNOWN Location: Physician(s): Ahsan Naik M.D. Diagnosis: Breast, right, lower inner, stereotactic guided core biopsy - Calcifications associated with fibroadenomatoid change - No atypical or malignant findings [facility]/01/07/2025 09:24 By this signature, I attest that [...] Surgical Pathology and Flow Cytometry Departments at [facility] as part of an ongoing senior quality methods specialist program and in compliance with federally mandated [...] Surgical Pathology and Flow Cytometry Departments of [facility]. It has not been cleared or approved by the U. S. Food and Drug Administration. IMAGES AND SCANNED DOCUMENTS, IF INCLUDED, ONLY VIEWABLE IN PDF VERSION OF REPORT us Filiberto Rao MD LAB PATHOLOGY ORDERABLES Fi nal Result PATHOLOGY [facility] 3rd Floor [place], [place] [phone] * (ABNORMAL) Diagnostic Mammogram Right W Shola [...] has been scheduled to return to the [facility] for biopsy on 01/06/2025. This facility will [...] nal Result from Last 3 Months Insurance [facility] [place] PPO [facility] CHOICE PLUS [facility] HMO/PPO Address: [address] [address] [place] [address] [employer] [place] MEDICARE [facility] Care Teams Geographic Information Systems Manager Relationship Specialty Start Date End Date Ahsna Naik MD [address] [place] [address] PCP - General Family Practice 12/01/24
--- OUTSIDE RECORDS SUMMARY | 2025-01-19 17:26 | XMS_ITS | Clinical Summary ---
Author Organization [facility] Address [facility] [place] [address] Care Team Providers Care Office Mail Clerk Name Role Phone Joni Hsieh MD Primary Care Provider [phone] Allergies Active Allergy Reactions Criticality Noted Date [...] Date Last Indicated MRSA 02/07/2017 02/07/2017 Insurance [facility] Advance Directives Documents on File Type Date Recorded Patient Grass Cutter Expl anation Legal Documents 06/15/2016 SLEGAL Care Teams Office Mail Clerk Relationship Specialty Start Date End Date Joni Hsieh MD [address] [place], [place] [phone] PCP - General INTERNAL MEDICINE 01/05/21
--- OUTSIDE RECORDS SUMMARY | 2025-01-19 17:26 | XMS_ITS | Encounter Summary ---
Author Organization [facility] Address [facility] [place] [address] Care Team Providers Care Apartment Rental Agent Name Role Phone Arturo Rolon DO Primary Care Provider [phone] Joni Hsieh MD Primary Care Provider [phone] None, Provider Primary Care Provider Unavaila ble Joni Hsieh MD Primary Care Provider [phone] Encounter Details Date Type Department Care Team (Latest Contact Info) Description 05/07/2018 Abstract [facility] Medical Group Franklin Heredia MD Social History [...] documented as of this encounter Care Teams Apartment Rental Agent Relationship Specialty Start Date End Date Arturo Rolon DO [address] [place] [address] PCP - General 10/25/15 01/04/20 Joni Hsieh MD [address] [place] [address] PCP - General INTERNAL MEDICINE 01/05/20 01/05/20 None, MD Jaqui PCP - General 04/08/20 01/04/21 Joni Hsieh MD [address] [place] [address] PCP - General INTERNAL MEDICINE 01/05/21 documented as of this encounter
--- OUTSIDE RECORDS SUMMARY | 2025-01-19 17:26 | XMS_ITS | Clinical Summary ---
Author Organization [facility] Address [address] [place] [address] Phone Care Team Providers Care Manager Meat Name Role Phone Joni Hsieh MD Primary Care Provider [phone] Allergies Active Allergy Reactions Criticality Noted Date [...] Description 01/15/2025 11:30 AM CDT Procedure visit [facility] Neurology [address] [facility] [address] [place] [address] Ruthy Salazar, VINCENT Chronic migraine without aura, [...] Abstract 11/19/2024 1:00 PM CDT Procedure visit [facility] Neurology [address] [facility] [address] [place] [address] Ruthy Salazar, VINCENT Bilateral occipital neuralgia (Primary Dx); Chronic migraine without aura, not intractable, without status migrainosus; Myofascial pain syndrome 11/19/2024 External Device Data STL ABSTRACTION Provider, Abstract 11/18/2024 External Device Data STL ABSTRACTION Provider, Abstract 10/23/2024 11:30 AM CDT Procedure visit [facility] Neurology [address] [facility] [address] [place] [address] Ruthy Salazar, ICICLE MACHINE OPERATOR Chronic migraine without aura, not intractable, without status migrainosus (Primary Dx) 10/22/2024 Orders Only [facility] Neurology [address] [place] [address] Ruthy Salazar, VINCENT Chronic migraine [...] on file Legal Sex Female 5:11 AM VP CONSTRUCTION Gender Identity Not on file Sexual Orientation Not on file Last Filed Vital Signs Vital Sign Reading Time Taken Comments Blood Pressure 118/82 01/15/2025 11:39 AM CDT Pulse 80 01/15/2025 11:39 AM CDT Temperature 36.8 C (98.2 F) 06/01/2022 9:44 AM VP CONSTRUCTION Respiratory Rate 17 02/12/2024 11:37 AM CDT Oxygen Saturation 98% 01/15/2025 11:39 AM CDT Inhaled Oxygen Concentration - - Weight 66.2 kg (146 lb) 05/21/2024 10:14 AM VP CONSTRUCTION Height 162.6 cm (5' 4) 05/21/2024 10:14 AM VP CONSTRUCTION Body Mass Index 25.06 05/21/2024 10:14 AM VP CONSTRUCTION Plan of Treatment Upcoming Encounters Date Type Department Care Team (Late st Contact Info) Description 02/16/2025 3:30 PM CDT Office Visit [facility] Neurology [address] [place] [address] Bradley Jordan MD [address] [facility] [address] [place] [address] 04/09/2025 11:00 AM CDT Procedure visit [facility] Neurology [address] [facility] [address] [place] [address] Ruthy Salazar, ICICLE MACHINE OPERATOR [address] [facility] [address] [place] [address] 07/08/2025 10:00 AM VP CONSTRUCTION Procedure visit [facility] Neurology [address] [facility] [address] [place] [address] Ruthy Salazar, ICICLE MACHINE OPERATOR [address] [facility] [address] [place] [address] Health Maintenance Due Date Last [...] Procedure Name Priority Date/Time Associated Diagnosis Comments [place] CHEMODERVATE FACIAL/TRIGEM/CERV MUSC MIGRAINE Routine 01/15/2025 1:16 PM CDT Chronic migraine without aura, not intractable, without status migrainosus MN INJECTION SINGLE/MAINTENANCE OF WAY CLERK TRIGGER POINT 3/> MUSCLES Routine 11/19/2024 3:23 PM CDT Bilateral occipital neuralgia Chronic migraine without aura, not intractable, without status migrainosus Myofascial pain syndrome MN CHEMODERVATE FACIAL/TRIGEM/CERV MUSC MIGRAINE Routine 10/23/2024 12:09 PM CDT Chronic migraine without aura, not intractable, without status migrainosus from Last 3 Months Results * [place] CHEMODERVATE FACIAL/TRIGEM/CERV MUSC MIGRAINE (01/15/2025 1:16 PM [...] as follows: OnabotulinumtoxinA-Botox 200 units (lot # [id number] ; expiration 04/27) was reconstituted using 4 ml preservative free saline to a final concentration of 50 units/ml. Using 1 ml syringes with 30 gauge 0.5 inch needles, and aseptic technique, Botox was administered as follows: Muscle # units Right # of inj sites Right # units Left # of inj sites Left Total units Marble Installation Helper 5 1 5 1 10 Procerus 5 [...] PROCEDURE/MINOR BOWER RGICAL ORDERABLES Final Result * MN INJECTION SINGLE/MAINTENANCE OF WAY CLERK TRIGGER POINT 3/> MUSCLES (11/19/2024 3:23 PM CDT) Narrative Ruthy Salazar NP - 11/19/2024 3:23 PM CDT Ruthy Salazar NP 11/19/2024 3:26 PM Procedure Note Patient: Megha Matthews / 63 y.o. / female : 1960 Procedure Performed: Trigger Point Injections Date of Service: 11/19/2024 Provider: Ruthy Salazar NP MA/PARAFFIN MACHINE OPERATOR/RN: Tomy Mei RN BP 110/72 (BP Location: [...] (ex: skin prep was fully dried per rn medicare instructions per use) Yes Specimens Removed: None Procedure Details: After informed consent was obtained the patient was given Trigger Point Injections as follows: Procedure, risks, benefits and treatment alternatives were reviewed with patient. After verbal and written consent obtained, using sterile technique the trigger point areas were prepped. Bupivacaine (MARCAINE, SENSORCAINE) 0.5% (Lot # [id number] ; Expiration: 05/26) was used. The procedure was well tolerated. Muscle # of inj sites Left Total dose left (mg) # of inj sites Right Total dose right (mg) Total dose (mg) Marble Installation Helper Procerus Frontalis Temporalis Occipitalis 4 20 5 [...] PROCEDURE/MINOR BOWER RGICAL ORDERABLES Final Result * MN CHEMODERVATE FACIAL/TRIGEM/CERV MUSC MIGRAINE (10/23/2024 12:09 PM [...] as follows: OnabotulinumtoxinA-Botox 200 units (lot # [id number] ; expiration 10/26) was reconstituted using 4 ml preservative free saline to a final concentration of 50 units/ml. Using 1 ml syringes with 30 gauge 0.5 inch needles, and aseptic technique, Botox was administered as follows: Muscle # units Right # of inj sites Right # units Left # of inj sites Left Total units Marble Installation Helper 5 1 5 1 10 Procerus 5 [...] BCBS BLUE ACCESS/TRUE BLUE PPO Care Teams Manager Meat Relationship Specialty Start Date End Date Joni Hsieh MD [address] [place] [address] PCP - General Internal Medicine 04/24/19
--- OUTSIDE RECORDS SUMMARY | 2025-01-19 17:26 | XMS_ITS | Encounter Summary ---
Author Organization [facility] Address [address] [place] [address] Care Team Providers Care Housing Management Representative Name Role Phone Joni Hsieh MD Primary Care Provider [phone] Reason for Visit * Reason Comments Medication Refill Encounter Details Date Type Department Care Team (Late Contact Info) Description 03/20/2019 Refill [facility] NEUROLOGY - [place] [address] - [address] [facility] [address] [place] [address] Ruthy Salazar, VINCENT [address] [facility] [address] [place] [address] Social History Tobacco Use Types Packs/Day Years Used Date Smoking Tobacco: Never Comments No Sex and Gender Information Value Date Recorded Sex Assigned at Not on file Legal Sex Female 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 Gender Identity Not on file Sexual Orientation [...] [facility] [address] [place] [address] Bradley Jordan MD [address] [place] [address] 04/09/2025 11:00 AM CDT Procedure visit [facility] Neurology [address] [place] [address] Ruthy Salazar, VINCENT [address] [facility] [address] [place] [address] 07/08/2025 10:00 AM COMPLIANCE ADVISOR Procedure visit [facility] Neurology [address] [place] [address] Ruthy Salazar NP [address] [facility] [address] [place] [address] documented as of this encounter Visit Diagnoses Not on filedocumented in this encounter Care Teams Housing Management Representative Relationship Specialty Start Date End Date Joni Hsieh MD [address] [place] [id number] PCP - General Internal Medicine 04/24/19 documented as of this encounter
--- OUTSIDE RECORDS SUMMARY | 2025-01-19 17:26 | XMS_ITS | Clinical Summary ---
Author Organization [facility] Address [address] [facility] [place] [address] Care Team Providers Care Transportation Analyst Name Role Phone Ji Lockhart Primary Care Provider [phone] Source Comments [facility],non-owned Affiliates and Associated Physician Practices is amultiple site organization consisting of ambulatory clinics and hospital sitesin [place], [place], [place] and [place]. This disclosure is being madepursuant to the Care Everywhere program and may not contain all information available regarding this patient. Last updated 18.[facility] Allergies Active Allergy Reactions Criticality Noted Date [...] once daily 2 Active rizatriptan, disintegrating, (Maxalt ENVIRONMENTAL ADVISER) 10 MG tablet Take 1 (one) tablet [...] Comments Blood Pressure 135/78 06/15/2022 3:57 PM DEMONSTRATOR SEWING TECHNIQUES Pulse 83 06/15/2022 3:57 PM DEMONSTRATOR SEWING TECHNIQUES Temperature 36.2 C (97.2 F) 04/05/2022 3:32 PM CDT Respiratory Rate - - Oxygen Saturation - - Inhaled Oxygen Concentration - - Weight 61.7 kg (136 lb) 06/15/2022 3:57 PM DEMONSTRATOR SEWING TECHNIQUES Height 160 cm (5' 3) 06/15/2022 3:57 PM DEMONSTRATOR SEWING TECHNIQUES Body Mass Index 24.09 06/15/2022 3:57 PM DEMONSTRATOR SEWING TECHNIQUES Plan of Treatment Health Maintenance Due Date [...] complete this topic Insurance ANTHEM Care Teams Transportation Analyst Relationship Specialty Start Date End Date Ji Lockhart DO [address] [place] [address] PCP - General 02/15/22
--- OUTSIDE RECORDS SUMMARY | 2025-01-19 17:26 | XMS_ITS | Continuity of Care Document ---
Author Organization [facility] Address [address] [place] [phone] Phone Care Team Providers Care Wick Tender Name Role Phone Reza Preston MD Unavailable [...] hours as needed 200 MG - Active Dimock 10 mg-325 mg tablet take 1 tablet [...] Diagnoses Date Provider Providers Copied on Encounter [facility], [address] [place] [address], [id number] tel:[phone] [facility] No Information 3 Kary Cobb. [address] [place] [address], [id number], [place]. tel:[phone] [facility], [address] [place] [address], [id number] tel:[phone] [facility] No Information 3 Sriram Dennis. [address] [place] [address], [id number], [place]. tel:[phone] Referring Provider: Toni Amato MD, [address] [place] [address], [id number]. tel:[phone] [facility], [address] [place] [address], [id number] tel:[phone] [facility] Encounter for screening for malignant neoplasm of colonFamily history of malignant neoplasm of digestive organsBenign neoplasm of ascending colonBenign neoplasm of transverse colonBenign neoplasm of descending colon 3 Sriram Dennis. [address] [place] [address], [id number], [place]. tel:[phone] Referring Provider: Toni Amato MD, [address] [place] [address], [id number]. tel:[phone] [facility], [address] [place] [address], [id number] tel:[phone] [facility] No Information 3 [facility]. [address] [place] [address], [id number], [place]. tel:[phone] Referring Provider: Sonny Isbell, [address] [place] [address], [id number]. tel:[phone] [facility], [address] [place] [address], [id number] tel:[phone] [facility] Colon polypNon-Spe cific Gastroenteri tis / ColitisDiver ticulosisScr eening for colon cancerErosio n Intestine 3 Neo stokes [address] [place] [address], [id number], [place]. tel:[phone] Referring Provider: Shad Sanderson MD, [facility] [address], [place], [address]. tel:[phone] [facility], [address] [place] [address], [id number] tel:[phone] [facility] No Information [facility]. [address] [place] [address], [id number], [place]. tel:[phone] Referring Provider: Aranza Larson MD, [address] [place] [address], [id number]. tel:[phone] [facility], [address] [place] [address], [id number] tel:[phone] [facility] No Information [address] [address] [place] [address], [id number], [place]. tel:[phone] Referring Provider: Shad Sanderson MD, [facility] [address] , [place], [address]. tel:[phone] [facility], [address] [place] [address], [id number] tel:[phone] [facility] No Information [address] [place] [address], [id number], [place]. tel:[phone] Referring Provider: Shad Sanderson MD, [facility] [address], [place], [address]. tel:[phone] Family History Family Member Type Diagnosis Age At Onset Cousin Problem Cancer, colon Maternal grandmother Problem Cancer, colon Payers Payer name Insurance type Covered libertarian ID Authoriza tion(s) [facility] [id number] Social History Type Description Quantity Date [...]
--- OUTSIDE RECORDS SUMMARY | 2025-01-19 17:26 | XMS_ITS | Continuity of Care Document ---
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 [address] [facility], [place], [place], [id number]. tel:[phone] OFFICE/OUTPAT IENT VISIT, [facility], [address] [place] [address], [place], [place], [id number], [place] tel:[phone] [facility] uveitis (chief complaint) Herpesviral iridocyclitis 2 VAKHARIA WEI. [address] [facility], [place], [place], [id number]. tel:[phone] [facility], [address] [place] [address], [place], [place], [id number], [place] tel:[phone] [facility] discomfort and blur (chief complaint) Dry Eye Syndrome 4 VAKHARIA WEI. [address] [facility], [place], [place], [id number]. tel:[phone] Referring Provider: Bruce Atkinson , [place], [address]. tel:[phone] OFFICE/OUTPAT IENT VISIT, [facility], [address] [place] [address], [place], [place], [id number], [place] tel:[phone] [facility] Iris Lesion OS (chief complaint) Benign neoplasm of eye, part unspecified 4 VAKHARIA WEI. [address] [place] [address], [place], [place], [id number]. tel:[phone] Referring Provider: [place], [address]. tel:[phone] Family History Family Member Type Diagnosis Age At Onset Problem No family history of Blindne ss Payers Payer name Insurance type Covered alliance party ID Authornataliea jeff(s) [facility] [id number] Social History Type Description Quantity Date Captured [...] woke up with red eye. Went to [facility] said had pink eye, perscribed an [...]
--- OUTSIDE RECORDS SUMMARY | 2025-01-19 17:26 | XMS_ITS | Clinical Summary ---
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
--- NOTE | 2025-01-19 18:27 | ECG_ITS ---
Test Date: 2025-01-19 18:43:28 Measurements Intervals Browning Rate: 67 P: 63 MI: 216 QRS: -24 QRSD: 81 T: 27 QT: 396 QTc: 420 Interpretive Statements SINUS RHYTHM WITH FIRST DEGREE AV BLOCK POSSIBLE ANTERIOR MYOCARDIAL INFARCTION , OF INDETERMINATE AGE [30 ms Q WAVE IN V3/V4, OR R < 0.2 mV IN V4] No previous ECG available for comparison Electronically Signed On 01-20-2025 16:34:18 CDT by Clementina Naqvi M.D.
--- NOTE | 2025-01-19 18:50 | ED_ITS ---
HPI - General Adult General Chief complaint: Back Pain/Injury Stated complaint: left back pain, worse on inspiration Time Seen by Provider: 01/19/25 17:06 History of Present Illness HPI narrative: 64-year-old female present to the emergency department for evaluation for upper back pain that she felt was reminiscent of previous episode of pleurisy. Patient states symptoms started this morning when she woke up. Patient states symptoms are worsened when she takes a deep breath. Patient states that she does still have some bilateral back pain with shallow inspiration but becomes very sharp with a deep inspiration. Patient denies any associated chest pain with this patient denies any associated shortness of breath. Patient has no prior history of PE or DVT. Patient denies any falls or injuries. Patient denies any recent coughs colds or fevers. Related Data Home Medications ?Medication ?Instructions ?Recorded ?Confirmed ?Last Taken ?Type calcium carbonate (Calcium 600) 600 mg PO DAILY 11/12/19 08/13/24 Unknown History cholecalciferol (vitamin D3) 50 50 mcg PO DAILY 05/25/21 08/13/24 Unknown History mcg (2,000 unit) capsule loratadine 10 mg chewable tablet 10 mg PO DAILY 02/28/24 08/13/24 Unknown History (Claritin) rimegepant 75 mg disintegrating 75 mg PO ONCE PRN 02/28/24 08/13/24 Unknown History tablet (Nurtec ODT) topiramate 50 mg capsule,extended mg PO 02/28/24 08/13/24 Unknown History release 24 hr valacyclovir 500 mg tablet 500 mg PO .prn PRN 02/28/24 08/13/24 Unknown History (Valtrex) indomethacin 50 mg capsule 50 mg PO ONCE PRN 06/09/24 08/13/24 Unknown History baclofen 10 mg tablet mg PO 09/03/24 Unknown History Allergies Allergy/AdvReac Type Severity Reaction Status Date / Time codeine Allergy Unknown Itching, Verified 01/19/25 16:47 THROAS SWELLING Penicillins Allergy Unknown Itching Verified 01/19/25 16:47 tramadol Allergy Unknown Itching, Verified 01/19/25 16:47 THROAT SWELLING gabapentin Allergy Itching Verified 01/19/25 16:47 hydrocodone Allergy ITCHING, Verified 01/19/25 16:47 THROAT SWELLING prednisone AdvReac Unknown Confusion Verified 07/21/25 16:47 Review of Systems 2 Review of Systems: All systems reviewed & are unremarkable except as noted in HPI and below PMFSH Past Medical History Medical History Lichen sclerosus et atrophicus Vaginal discharge Screening mammogram, encounter for Migraines Colon cancer screening Diabetes type 2, controlled Adhesive capsulitis of left shoulder Shingles CKD (chronic kidney disease) stage 3, GFR 30-59 ml/min Dyslipidemia Elevated TSH Thryoid hormone normal in june Essential hypertension IFG (impaired fasting glucose) Occipital neuralgia Surgical History Surgical History History of History of shoulder surgery (~12/30/19) Manipulation Under Anesthesia History of arthroscopic surgery of shoulder (~12/15/19) Capsule Release, Manipulation, Subacromial Decompression History of cholecystectomy (~05/2008) History of hysterectomy (~10/2001) supracx hysterectomy Family History Family History Mother Family history of Alzheimer's disease Family history of throat cancer, Onset Age: 74 Heart disease Grandparent Ischemic stroke maternal grandmother Sibling Non Hodgkin's lymphoma brother Social History Social History Smoking status: Never smoker Second hand tobacco smoke exposure: No Alcohol intake: former Alcohol use details: Social Substance use: never Substance use type: does not use Do You Feel Safe in your Home?: Yes Lack of Transportation: No Lack of Food: Never True Current Housing: I Have Housing Concerned About Future Housing: No Difficulty Paying Gas/Electric Bills: No Difficulty Paying for Meds: No Currently Unemployed: No Education: Trade/Vocational Certificate Difficulty w/ Childcare or Family Care: No Living arrangements: with family Additional living arrangements comments: Occupation/Education: retired 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 HEAD: normocephalic, atraumatic. EYES: PERRLA/EOMI, conjunctivae clear. NOSE: Normal no drainage EARS:TMS clear with good light reflex. THROAT: Pharynx clear, no exudate. NECK: Supple. No adenopathy, no masses. RESPIRATORY: Airway patent, respirations nonlabored. Clear to auscultation bilaterally, no rales, rhonchi, wheezing. CARDIOVASCULAR: Regular rate and rhythm without murmurs rubs or gallops. ABDOMINAL: Soft, nontender, nondistended, normal bowel sounds MUSCULOSKELETAL: No midline tenderness to palpation cervical thoracic spine, paraspinal muscular tenderness and tenderness to bilateral upper back NEURO: Alert. Cranial nerves II through XII intact. Grossly intact SKIN: Warm, dry. Normal Color Course Vital Signs Vital signs: Vital Signs Temperature 98.0 F 01/19/25 16:43 Pulse Rate 75 01/19/25 16:43 Respiratory Rate 18 01/19/25 16:43 Blood Pressure 149/75 H 01/19/25 16:43 Pulse Oximetry 100 01/19/25 16:43 Oxygen Delivery Room Air 01/19/25 16:43 Temperature 98.0 F 01/19/25 16:43 Pulse Rate 68 01/19/25 21:25 Respiratory Rate 20 01/19/25 21:25 Blood Pressure 155/78 H 01/19/25 21:25 Pulse Oximetry 98 01/19/25 21:25 Oxygen Delivery Room Air 01/19/25 16:43 Medical Decision Making [facility] Narrative Medical decision making narrative: 64-year-old female presents emergency department for evaluation for back pay to which patient states is reminiscent of her previous episodes pleurisy. Patient has no midline spinal tenderness to palpation but does have lateral upper back tenderness to palpation is worsened with deep inspiration. Patient's D-dimer was elevated and CTA was ordered to rule out pulmonary embolism. CT was negative for PE. Patient is currently afebrile with no leukocytosis hemoglobin of 13.0. No acute abnormalities on her CMP. Patient reports he did feel improved with the Toradol. Patient declined any additional medications for pain control. EKG showed normal sinus rhythm with no evidence of acute STEMI. Patient family were updated on the results of the workup and plan for pain management for home. All questions concerns were addressed. Differential Diagnosis Differential Diagnosis: Pneumonia, pneumothorax, ACS, pleurisy Vital Signs Vital Signs: Vital Signs Temperature 98.0 F 01/19/25 16:43 Pulse Rate 75 01/19/25 16:43 Respiratory Rate 18 01/19/25 16:43 Blood Pressure 149/75 H 01/19/25 16:43 Pulse Oximetry 100 01/19/25 16:43 Oxygen Delivery Room Air 01/19/25 16:43 Temperature 98.0 F 01/19/25 16:43 Pulse Rate 68 01/19/25 21:25 Respiratory Rate 20 01/19/25 21:25 Blood Pressure 155/78 H 01/19/25 21:25 Pulse Oximetry 98 01/19/25 21:25 Oxygen Delivery Room Air 01/19/25 16:43 Lab Data Lab results reviewed: Yes I reviewed the patient's lab results. 01/19/25 18:56 01/19/25 18:56 Labs: Lab Results 01/19/25 Range/Units 18:56 WBC 6.2 (4.5-10.0) K/mm3 RBC 4.60 (4.2-5.4) M/mm3 Hgb 13.0 (12.0-15.0) g/dL Hct 41.1 (37.0-47.0) % MCV 89.3 (80-100) fl MCH 28.3 (26-34) pg MCHC 31.6 L (32-36) g/dl RDW 12.7 (11.5-14.5) % Plt Count 227 (150-375) k/mm3 MPV 9.6 (7.4-10.4) fl Immature Gran % (Auto) 0.2 (0-0.5) % Neut % (Auto) 52.9 (45.5-73.1) % Lymph % (Auto) 35.4 (18.3-44.2) % [place]alle % (Auto) 8.8 H (2.6-8.5) % Eos % (Auto) 2.2 (0-4.4) % Baso % (Auto) 0.5 (0.2-1.2) % Lymph # (Auto) 2.21 (0.9-3.2) K/mm3 [place] # (Auto) 0.6 (0.1-0.6) K/mm3 Eos # (Auto) 0.1 (0-0.3) K/mm3 Baso # (Auto) 0.0 (0.0-0.1) K/mm3 Abs Immat Gran (auto) 0.01 (0.00-0.031) K/mm3 Absolute Neuts (auto) 3.3 (1.3-6.7) K/mm3 Absolute Nucleated RBC 0.000 (0.0-0.012) K/mm3 Nucleated RBC % 0.0 (0.0-0.2) % D-Dimer 0.56 H (<0.48) ug/mL Sodium 138 (137-145) mmol/L Potassium 4.0 (3.4-5.0) mmol/L Chloride 107 (98-107) mmol/L Carbon Dioxide 22 (22-30) mmol/L Anion Gap 9 (4-12) mmol/L BUN 15 (7-17) mg/dL Creatinine 1.56 H (0.7-1.0) mg/dL Estim Creat Clear Calc 28 ml/min Estimated GFR 33 L (59 - ) Glucose 102 (65-110) mg/dL Calcium 9.8 (8.4-10.2) mg/dL Total Bilirubin 0.4 (0.2-1.3) mg/dL AST 33 (14-36) U/L ALT 12 (6-35) U/L Alkaline Phosphatase 100 (38-126) U/L Total Protein 8.7 H (6.3-8.2) g/dL Albumin 5.0 (3.5-5.1) g/dL Imaging Data Radiologist's impression: Impressions Chest X-Ray 01/19/25 19:06 IMPRESSION: No acute cardiopulmonary process. Chest CTA 01/19/25 21:08 IMPRESSION: No CT evidence of acute pulmonary embolus. No acute process detected in the chest. ECG Data EKG #1: EKG Interpretation: normal rate, sinus rhythm, no ectopy, non-specific ST changes, normal QRS, normal QT and NL axis Discharge Plan Discharge Clinical Impression: Pleurisy, Back pain Patient Disposition: Home Condition: Stable Instructions: Antibiotic Form, Pleurisy (DC), Back Pain (ED) Additional Instructions: Naproxen for pain control. Flexeril for muscle spasm. Tylenol for additional pain control. Have close follow-up with your primary care physician. If you have any worsening symptoms then please call or return to the emergency department. Patient Language: Azeri Prescriptions: New naproxen 500 mg tablet 500 mg PO BID PRN (Reason: pain) Qty: 14 0RF cyclobenzaprine 10 mg tablet 10 mg PO BID PRN (Reason: muscle spasm) Qty: 14 0RF No Action cholecalciferol (vitamin D3) 50 mcg (2,000 unit) capsule 50 mcg PO DAILY clobetasol 0.05 % ointment 1 applic topical BID Qty: 45 2RF indomethacin 50 mg capsule 50 mg PO ONCE PRN Rx Instructions: migraines baclofen 10 mg tablet PO albuterol sulfate 90 mcg/actuation HFA aerosol inhaler 1 inh inhalation Q4H PRN (Reason: shortness of breath or wheezing) Qty: 8.5 1RF Claritin 10 mg tablet,chewable 10 mg PO DAILY valacyclovir [Valtrex] 500 mg tablet 500 mg PO .prn PRN Nurtec ODT 75 mg tablet,disintegrating 75 mg PO ONCE PRN Rx Instructions: as a single dose topiramate 50 mg capsule,extended release 24hr PO calcium carbonate [Calcium 600] 600 mg calcium (1,500 mg) Tablet 600 mg PO DAILY diltiazem HCl 240 mg capsule,extended release 24 hr 240 mg PO DAILY Qty: 90 1RF Farxiga 5 mg tablet See Rx Instructions .ROUTE .COMPLEX Qty: 90 1RF Dose Instruction: TAKE 1 TABLET BY MOUTH EVERY DAY Rx Instructions: TAKE 1 TABLET BY MOUTH EVERY DAY fluticasone propionate 50 mcg/actuation spray,suspension See Rx Instructions .ROUTE .COMPLEX Qty: 48 1RF Dose Instruction: USE 2 SPRAYS IN EACH NOSTRIL ONCE DAILY Rx Instructions: USE 2 SPRAYS IN EACH NOSTRIL ONCE DAILY rosuvastatin [Crestor] 5 mg tablet 5 mg PO DAILY Qty: 90 1RF Follow-up/Referrals: Ahsan Naik MD [Primary Care Provider] -
[2025-01-19] MEDS: KETOROLAC 15 MG/ML VIAL (*BKC) IV PUSH (18:57)
[2025-01-19 19:06] LABS: Hematocrit 41.1 % (37.0-47.0); Hemoglobin 13.0 g/dL (12.0-15.0); Immature Granulocyte Percent A 0.2 % (0-0.5); Lymphocytes Absolute Auto 2.21 K/mm3 (0.9-3.2); Mean Corpuscular HGB Conc 31.6 g/dl (32-36); Mean Corpuscular Hemoglobin 28.3 pg (26-34); Mean Corpuscular Volume 89.3 fl (80-100); Nucleated Red Blood Cells Absolute Auto 0.000 K/mm3 (0.0-0.012); Nucleated Red Blood Cells Perc 0.0 % (0.0-0.2); Platelet Count Result 227 k/mm3 (150-375); Red Blood Count 4.60 M/mm3 (4.2-5.4); White Blood Count 6.2 K/mm3 (4.5-10.0)
[2025-01-19 19:29] LABS: Alanine Aminotransferase 12 U/L (6-35); Albumin Level 5.0 g/dL (3.5-5.1); Alkaline Phosphatase 100 U/L (38-126); Anion Gap 9 mmol/L (4-12); Aspartate Amino Transferase 33 U/L (14-36); Bilirubin,Total 0.4 mg/dL (0.2-1.3); Blood Urea Nitrogen 15 mg/dL (7-17); Calcium 9.8 mg/dL (8.4-10.2); Carbon Dioxide 22 mmol/L (22-30); Chloride 107 mmol/L (98-107); Estimated CRCL calculation 28 ml/min; Estimated Glomerular Filt Rate 33; Glucose 102 mg/dL (65-110); Potassium 4.0 mmol/L (3.4-5.0); Sodium 138 mmol/L (137-145); Total Protein 8.7 g/dL (6.3-8.2)
== END 2025-01-19 21:28 | disposition home or self-care (01) ==
PROVIDERS: Emergency Provider Emergency Medicine; PCP Family Medicine
DX: R09.1 Pleurisy (principal); M54.9 Dorsalgia, unspecified; I12.9 Hypertensive chronic kidney disease with stage 1 through stage 4 chronic kidney disease, or unspecified chronic kidney disease; E11.22 Type 2 diabetes mellitus with diabetic chronic kidney disease; N18.30 Chronic kidney disease, stage 3 unspecified; E78.5 Hyperlipidemia, unspecified
CPT/HCPCS: 36415; 71046; 71275; 80053; 85025; 85380; 93005; 96374; 99284; J1885; Q9967

== ENCOUNTER 2025-02-16 11:40 | Outpatient (CLI) | payer MEDICARE, BC, SELFPAY ==
--- NOTE | ~2025-02-16 | XR_ITS ---
EXAM/ PROCEDURE: XR_CERV2-3V_CR - 02/16/2025 12:10 CDT HISTORY: 64 years old Female with M54.2 - Cervicalgia COMPARISON: None available TECHNIQUE: Three view(s) FINDINGS/ IMPRESSION: There are no fractures or dislocations.Multilevel degenerative changes are seen. Visualized portion o f lungs are clear. Reviewed, dictated and finalized at location A.
--- NOTE | ~2025-02-16 | XR_ITS ---
CHEST RADIOGRAPH, PA AND LATERAL CLINICAL HISTORY: R06.02 - Shortness of breath . COMPARISON: 01/19/2025 TECHNIQUE: PA and lateral views of the chest. FINDINGS The cardiomediastinal silhouette is unremarkable. Trace peribronchial thickening is identified. The lungs are otherwise clear. IMPRESSION: Trace peribronchial thickening, without focal infiltrate or effusion. Reviewed, dictated and finalized at location A.
--- NOTE | ~2025-02-16 | XR_ITS ---
EXAM/ PROCEDURE: XR thoracic spine 2V - 02/16/2025 12:10 CDT HISTORY: 64 years old Female with M54.6 - Pain in thoracic spine M54.6 - Pain in thoracic spine COMPARISON: None available TECHNIQUE: Three view(s) FINDINGS/ IMPRESSION: There are no fractures or dislocations.Multilevel degenerative changes are seen. Visualized portion o f lungs are clear. Cystectomy clips seen. Reviewed, dictated and finalized at location A.
--- OUTSIDE RECORDS SUMMARY | 2025-02-16 13:01 | XMS_ITS | Clinical Summary ---
Author Organization [facility] Address [address] [place] [address] Phone Care Team Providers Care Letterset Press Set Up Operator Name Role Phone Joni Hsieh MD Primary Care Provider [phone] Allergies Active Allergy Reactions Criticality Noted Date [...] Take 5 mg by mouth daily. Active Cholecalcifero l, Vitamin D3, 50 mcg (2,000 unit) Capsule Take 1 Tablet by mouth daily. 021 Active Farxiga 5 mg Tablet Take 5 mg by mouth daily. 022 Active meclizine (ANTIVERT) 12.5 mg tabletIndicati ons:Chronic migraine without aura, not intractable, without status migrainosus,Di zzinesses TAKE 2 TABLETS BY MOUTH 3 TIMES A DAY NEEDED FOR DIZZINESS 20 Tablet 2 022 Active Tiadylt ER 240 mg Extended Release capsule Take 240 mg by mouth daily. 022 Active onabotulinumto xinA (BOTOX) 200 unit Recon SolnIndication s:Chronic migraine without aura, not intractable, without status migrainosus Inject up to 200u IM to the head and neck muscles every 12 weeks in the MD office. Discard unused portion. 1 Each 023 Active rimegepant (Nurtec ODT) 75 mg Tablet, Rapid Dissolve Take 1 Tablet (75 mg) by mouth see administration instructions. Take #1 pill as needed at the time of severe migraine, max 2x/week 15 Tablet 3 024 Active indomethacin (INDOCIN) 50 mg capsuleIndicat ions:Chronic migraine without aura, not intractable, without status migrainosus TAKE 1 CAPSULE BY MOUTH THREE TIMES A DAY NEEDED FOR PAIN UP TO 2 DAYS PER WEEK 25 Capsule 3 025 Active topiramate (TROKENDI XR) 50 mg Extended Release 24 hour capsule Take 1 Capsule (50 mg) by mouth daily. 30 Capsule 11 025 Active ondansetron (ZOFRAN ODT) 8 mg Tablet, Rapid Dissolve Dissolve 1 tablet on top of tongue then swallow with saliva every 8 hours as needed for nausea or vomiting 30 Tablet 2 025 Active baclofen (LIORESAL) 10 mg tabletIndicati ons:Bilateral occipital neuralgia TAKE 2 TABLETS (20 MG) BY MOUTH DAILY AT BEDTIME. MAY ALSO TAKE 1 TABLET (10 MG) 3 TIMES DAILY NEEDED FOR PAIN. DOSES MUST BE AT LEAST 4 HOURS APART. 450 Tablet 1 025 Active baclofen (LIORESAL) 10 mg tablet Take 2 Tablets (20 mg) by mouth daily at bedtime. May also take 1 Tablet (10 mg) 3 times daily as needed for Pain. Doses must be at least 4 hours apart. 450 Tablet 1 025 2024 Discontinued Hospital, Clinic, or Other Facility Administered Medication [...] Encounters Date Type Department Care Team Description 02/07/2025 Refill [facility] Neurology [address] [place] [address] Ruthy Salazar, VINCENT Bilateral occipital neuralgia (Primary Dx) 02/04/2025 External Device Data STL ABSTRACTION Provider, Abstract 02/03/2025 External Device Data STL ABSTRACTION Provider, Abstract 01/15/2025 11:30 AM CDT Procedure visit [facility] Neu[facility] [address] [place] [address] Ruthy Salazar, VINCENT Chronic migraine without aura, [...] Abstract 11/19/2024 1:00 PM CDT Procedure visit [facility] Neurology [address] [place] [address] Ruthy Salazar, VINCENT Bilateral occipital neuralgia (Primary Dx); Chronic migraine without aura, not intractable, without status migrainosus; Myofascial pain syndrome 11/19/2024 External Device Data STL ABSTRACTION Provider, Abstract 11/18/2024 External Device Data STL ABSTRACTION Provider, Abstract from Last 3 Months Family History Medical [...] on file Legal Sex Female 5:11 AM COMPLEX CARE NURSE Gender Identity Not on file Sexual Orientation Not on file Last Filed Vital Signs Vital Sign Reading Time Taken Comments Blood Pressure 118/82 01/15/2025 11:39 AM CDT Pulse 80 01/15/2025 11:39 AM CDT Temperature 36.8 C (98.2 F) 06/01/2022 9:44 AM COMPLEX CARE NURSE Respiratory Rate 17 02/12/2024 11:37 AM CDT Oxygen Saturation 98% 01/15/2025 11:39 AM CDT Inhaled Oxygen Concentration - - Weight 66.2 kg (146 lb) 05/21/2024 10:14 AM COMPLEX CARE NURSE Height 162.6 cm (5' 4) 05/21/2024 10:14 AM COMPLEX CARE NURSE Body Mass Index 25.06 05/21/2024 10:14 AM COMPLEX CARE NURSE Plan of Treatment Upcoming Encounters Date Type Department Care Team (Late st Contact Info) Description 02/16/2025 2:00 PM CDT Office Visit [facility] Neurology [address] [place] [phone] Jodi Rojas MD [address] [place] [address] 04/09/2025 11:00 AM CDT Procedure visit [facility] Neurology [address] [place] [address] Ruthy Salazar, VINCENT [address] [facility] [address] [place] [address] 07/08/2025 10:00 AM COMPLEX CARE NURSE Procedure visit [facility] Neurology [address] [facility] [address] [place] [address] Ruthy Salazar, VINCENT [address] [facility] [address] [place] [address] Health Maintenance Due Date Last [...] - Risk 60-74 years 1-dose series) 2019 Preventative Visit- Commercial 07/02/2024 OSTEOPOROSIS SCREENING 12/02/2024 INFLUENZA VACCINE (#1) 2025 BREAST CANCER SCREENING 01/06/2026 01/07/20, 01/06/2025, 12/23/2024, Additional history exists Procedures Procedure Name Priority Date/Time Associated Diagnosis Comments OH CHEMODERVATE FACIAL/TRIGEM/CERV MUSC MIGRAINE Routine 01/15/2025 1:16 PM CDT Chronic migraine without aura, not intractable, without status migrainosus OH INJECTION SINGLE/CORRECTIONAL MAINTENANCE TECHNICIAN TRIGGER POINT 3/> MUSCLES Routine 11/19/2024 3:23 PM CDT Bilateral occipital neuralgia Chronic migraine without aura, not intractable, without status migrainosus Myofascial pain syndrome from Last 3 Months Results * OH CHEMODERVATE FACIAL/TRIGEM/CERV MUSC MIGRAINE (01/15/2025 1:16 PM [...] as follows: OnabotulinumtoxinA-Botox 200 units (lot # [id number] ; expiration 04/27) was reconstituted using 4 ml preservative free saline to a final concentration of 50 units/ml. Using 1 ml syringes with 30 gauge 0.5 inch needles, and aseptic technique, Botox was administered as follows: Muscle # units Right # of inj sites Right # units Left # of inj sites Left Total units Regional Ehs Manager 5 1 5 1 10 Procerus 5 [...] PROCEDURE/MINOR BOWER RGICAL ORDERABLES Final Result * [place] INJECTION SINGLE/CORRECTIONAL MAINTENANCE TECHNICIAN TRIGGER POINT 3/> MUSCLES (11/19/2024 3:23 PM CDT) Narrative Ruthy Salazar NP - 11/19/2024 3:23 PM CDT Ruthy Salazar NP 11/19/2024 3:26 PM Procedure Note Patient: Megha Matthews / 63 y.o. / female : 1960 Procedure Performed: Trigger Point Injections Date of Service: 11/19/2024 Provider: Ruthy Salazar NP MA/MEDICAL ASSEMBLY/RN: Tomy Mei RN BP 110/72 (BP Location: [...] (ex: skin prep was fully dried per paint grinder stone mill instructions per use) Yes Specimens Removed: None Procedure Details: After informed consent was obtained the patient was given Trigger Point Injections as follows: Procedure, risks, benefits and treatment alternatives were reviewed with patient. After verbal and written consent obtained, using sterile technique the trigger point areas were prepped. Bupivacaine (MARCAINE, SENSORCAINE) 0.5% (Lot # [id number] ; Expiration: 05/26) was used. The procedure was well tolerated. Muscle # of inj sites Left Total dose left (mg) # of inj sites Right Total dose right (mg) Total dose (mg) Regional Ehs Manager Procerus Frontalis Temporalis Occipitalis 4 20 5 [...] Final Result from Last 3 Months Insurance [facility] BLUE ACCESS/TRUE BLUE PPO Care Teams Letterset Press Set Up Operator Relationship Specialty Start Date End Date Joni Hsieh MD [address] [place] [address] PCP - General Internal Medicine 04/24/19
--- OUTSIDE RECORDS SUMMARY | 2025-02-16 13:01 | XMS_ITS | Clinical Summary ---
Author Organization [place] [address] [facility] Address [address] [place] [address] Care Team Providers Care Topper Press Operator Name Role Phone Ahsan Naik MD Primary Care Provider [phone] Allergies Active Allergy Reactions Criticality Noted Date [...] Type Department Care Team Description 01/09/2025 Telephone [facility] [address] [place] [address] Thu Barajas Test Results (Right breast biopsy 01/06/25) 01/06/2025 12:23 PM CDT - 01/06/2025 11:59 PM CDT Hospital Encounter [facility]) [address] [place], [place] [id number] Abnormal mammogram Discharge Disposition: Discharge to home or self care 01/06/2025 10:35 AM CDT - 01/06/2025 11:59 PM CDT Hospital Encounter [facility] Advanced [facility] Breast Imaging [facility] ([facility]) [address] [place] [address] Abnormal mammogram Discharge Disposition: Discharge to home or self care 12/23/2024 3:09 PM CDT - 12/23/2024 11:59 PM CDT Hospital Encounter [facility] Breast Imaging [facility] ([facility]) [address] [place] [address] Abnormality of right breast on screening mammography Discharge Disposition: Discharge to home or self care 12/10/2024 11:00 AM CDT - 12/10/2024 11:59 PM CDT Hospital Encounter [address] [place] [address] Screening mammogram, encounter for Discharge Disposition: Discharge [...] on file Legal Sex Female 9:12 PM TOPSTITCHER ZIGZAG Gender Identity Not on file Sexual Orientation [...] history exists Medical Devices Implanted Type Area Environmental Protection Inspector Device Identifier Shelf Expiration Date Model / Serial / Lot [employer] Rigid End Hourglass Marker Breast Biopsy Titanium Rtjnnrt-Ddljo-2 s-13 - [id number] Implanted:Qty: 1 on 01/06/[address] [facility] Right: Breast [employer] [id number] 09/10/2026 [employer]-E VIVA-2S-1 3 / / [id number] Procedures Procedure Name Priority Date/Time Associated Diagnosis [...] be discussed with the patient by Breast [facility] Center or referring provider staff and will [...] Procedure Mammograms for Marker Placement Dictated by: aPtricio Knight M.D. The radiology attending physician has [...] from below approach, BIRADS 4A Narrative PATHOLOGY [facility] - 01/07/2025 2:06 PM CDT EPIC results best viewed via link to PDF [facility] [place] [address] Note to Patients: This report may contain [...] Gender: F : 1960 (Age: 64) Address: [address] [place], [place] [address] Hospital #: [id number] Taken:01/06/2025 Received:01/06/2025 Reported: 01/07/2025 Patient Type: [facility] Ancillary Service: UNKNOWN Location: Physician(s): Ahsan Naik M.D. Diagnosis: Breast, right, lower inner, stereotactic guided core biopsy - Calcifications associated with fibroadenomatoid change - No atypical or malignant findings [facility]/01/07/2025 09:24 By this signature, I attest that [...] Surgical Pathology and Flow Cytometry Departments at [facility] as part of an ongoing quality lab assoc program and in compliance with federally mandated [...] Surgical Pathology and Flow Cytometry Departments of [facility]. It has not been cleared or approved by the U. S. Food and Drug Administration. IMAGES AND SCANNED DOCUMENTS, IF INCLUDED, ONLY VIEWABLE IN PDF VERSION OF REPORT us Filiberto Rao MD LAB PATHOLOGY ORDERABLES Fi nal Result PATHOLOGY [facility] 3rd Floor [place], [place] [phone] * (ABNORMAL) Diagnostic Mammogram Right W Shola [...] [facility]. This facility [...] nal Result from Last [address] [facility] Plixi PPO [facility] CHOICE PLUS [employer] ACCESS HI [employer] HI MEDICARE [employer] HI MEDICARE [facility] Care Teams Topper Press Operator Relationship Specialty Start Date End Date Ahsan Naik MD [address] [place] [address] PCP - General Family Practice 12/01/24
--- OUTSIDE RECORDS SUMMARY | 2025-02-16 13:01 | XMS_ITS | Clinical Summary ---
Author Organization [facility] Address [address] [facility] [place] [address] Care Team Providers Care Funding Analyst Name Role Phone Ji Lockhart Primary Care Provider [phone] Source Comments [facility],non-owned Affiliates and Associated Physician Practices is amultiple site organization consisting of ambulatory clinics and hospital sitesin [place], [place], [place]. This disclosure is being madepursuant to the Care Everywhere program and may not contain all information available regarding this patient. Last updated 18.[facility] Allergies Active Allergy Reactions Criticality Noted Date [...] once daily 2 Active rizatriptan, disintegrating, (Maxalt ACRYLIC FABRICATOR) 10 MG tablet Take 1 (one) tablet [...] Comments Blood Pressure 135/78 06/15/2022 3:57 PM WIRE PREPARATION WORKER Pulse 83 06/15/2022 3:57 PM WIRE PREPARATION WORKER Temperature 36.2 C (97.2 F) 04/05/2022 3:32 PM CDT Respiratory Rate - - Oxygen Saturation - - Inhaled Oxygen Concentration - - Weight 61.7 kg (136 lb) 06/15/2022 3:57 PM WIRE PREPARATION WORKER Height 160 cm (5' 3) 06/15/2022 3:57 PM WIRE PREPARATION WORKER Body Mass Index 24.09 06/15/2022 3:57 PM WIRE PREPARATION WORKER Plan of Treatment Health Maintenance Due Date [...] complete this topic Insurance [employer] Care Teams Funding Analyst Relationship Specialty Start Date End Date Ji Lockhart DO [address] [place] [address] PCP - General 02/15/22
--- OUTSIDE RECORDS SUMMARY | 2025-02-16 13:01 | XMS_ITS | Encounter Summary ---
Author Organization [facility] Address [address] [place] [address] Care Team Providers Care Patient Financial Representative Name Role Phone Ji Lockhart DO Primary Care Provider [phone] Encounter Details Date Type Department Care Team (Late st Contact Info) Description 12/27/2020 Lab Requisition [facility] DermPath Lab [address] [place] [phone] Chapincito Brasher MD [address] [address] Social History Tobacco Use Types Packs/Day Years [...] AM CDT) Case Report Dermatopathology Report Case: [id number] Authorizing Provider: Chapincito Brasher MD Collected: 12/23/2020 12:00 AM Ordering Location: [facility] DermPath Lab Received: 12/27/2020 06:04 AM Pathologist: David Mahmood MD Specimen: Skin, mid back 06/29/202 1 4:46 PM CDT DERMATOPATHOLOGY LABORATORY Final Diagnosis Specimen A. SKIN, mid back: EPIDERMOID CYST (L72.0) NOT PRESENT AT SAMPLED MARGIN 1 4:46 PM CDT DERMATOPATHOLOGY LABORATORY at 1646 CDT Clinical History E cyst. Check margins. Path# [id number]. 1 4:46 PM CDT DERMATOPATHOLOGY LABORATORY Gross Description Specimen A: Received is one formalin filled container labeled with the patient's name and designated mid back. The specimen consists of a [id number] excision of skin. The specimen is bisected [...] characteristic determined by the Dermatopathology Laboratory at [facility], directed by Dr. Allan Mahmood. These tests need not be, and therefore are not, approved by the [place] Food and Drug Administration. The tests are used for clinical purposes. Billing Codes Specimen Charges Stain Charges 82868 1 1 4:46 PM CDT DERMATOPATHOLOGY LABORATORY Embedded Images 4:46 PM CDT DERMATOPATHOLOGY LABORATORY Pathology/Cytolog y TISSUE SPECIMEN FROM SKIN / Unknown 12/23/2020 12/27/2020 6:04 AM CDT us Chapincito Brasher MD LAB - PATHOLOGY/CYTOLOGY ORDER ACACIA Final Result DERMATOPATHOLOGY LABORATORY [facility] - Department of Dermatology [address], [address] [phone] documented in this encounter Visit Diagnoses Not on filedocumented in this encounter Care Teams Patient Financial Representative Relationship Specialty Start Date End Date Ji Lockhart DO [address] [facility] [address] [place] [address] PCP - General 02/15/22 documented as of this encounter
--- OUTSIDE RECORDS SUMMARY | 2025-02-16 13:01 | XMS_ITS | Clinical Summary ---
Author Organization [facility] Care Team Providers Care Recreation Therapist Name Role Phone Unavailable Primary Care Provider Unavailabl e Social History Tobacco Use Types Packs/Day Years Used Date Smoking Tobacco: Never Assessed Comments Unknown Sex and Gender Information Value Date Recorded Sex Assigned at Not on file Legal Sex Female 11:29 AM PIGMENT WEIGHER Gender Identity Not on file Sexual Orientation Not on file Plan of Treatment Health Maintenance Due Date Last Done Comments Hepatitis C Virus (HCV) Screening 1960 TdaP Immunization 1960 Pap Smear 12/02/1980 Cervical Cancer Screening (CCS) 12/02/1989 HPV/Cotest 12/02/1989 Cologuard 12/02/2004 Colonoscopy 12/02/2004 Colorectal Cancer Screening 12/02/2004 Immunochemical Fecal Occult Blood 12/02/2004 Pneumococcal Immunization (5 0+ years) (1 of 1 - PCV) 12/02/2009 Zoster Immunization (1 of 2) 12/02/2009 SARS-COV-2 Immunization (2 - season) 2024 09/07/2020 Influenza Immunization (#1) 2025 Respiratory Syncytial Virus (RSV) Immunization (Adult) (1 - 1-dose 75+ series) 12/02/2034 Hepatitis B Immunization Aged Out No longer eligible based on patient's age to complete this topic Human Papillomavirus (HPV) Immunization Aged Out No longer eligible b ased on patient's age to complete this topic Meningococcal Immunization (ACWY) Aged Out No longer eligible based on patient's age to complete this topic Rotavirus Immunization Aged Out No lo nger eligible based on patient's age to complete this topic
--- OUTSIDE RECORDS SUMMARY | 2025-02-16 13:01 | XMS_ITS | Encounter Summary ---
Author Organization [facility] Address [address] [place] [address] Care Team Providers Care Rivet Maker Name Role Phone Joni Hsieh MD Primary Care Provider [phone] Reason for Visit * Reason Comments Medication Refill Encounter Details Date Type Department Care Team (Late Contact Info) Description 03/20/2019 Refill [facility] [place] [address] [facility] [address] [place] [address] Ruthy Salazar, VINCENT [address] [facility] [address] [address] [place] [address] Social History Tobacco Use Types Packs/Day Years Used Date Smoking Tobacco: Never Comments No Sex and Gender Information Value Date Recorded Sex Assigned at Not on file Legal Sex Female 5:11 AM TROUBLE LOCATER Gender Identity Not on file Sexual Orientation Not on file documented as of this encounter Miscellaneous Notes * Telephone Encounter - Carly Mercedes - 03/21/2019 8:08 AM CDT Pt's last OV 12/19/2018 follow up 04/21/2019. documented in this encounter Plan of Treatment Upcoming Encounters Date Type Department Care Team (Late Contact Info) Description 02/16/2025 2:00 PM CDT [facility] [address] [place] [address] Jodi Rojas MD [address] [place] [address] 04/09/2025 11:00 AM CDT Procedure visit [facility] Neurology [address] [place] [address] Ruthy Salazar, VINCENT [address] [facility] [address] [place] [address] 07/08/2025 10:00 AM TROUBLE LOCATER Procedure visit [facility] Neurology [address] [place] [address] Ruthy Salazar, VINCENT [address] [facility] [address] [place] [address] documented as of this encounter Visit Diagnoses Not on filedocumented in this encounter Care Teams Rivet Maker Relationship Specialty Start Date End Date Joni Hsieh MD [address] [place] [phone] PCP - General Internal Medicine 04/24/19 documented as of this encounter
== END 2025-02-16 11:41 | disposition home or self-care (01) ==
PROVIDERS: PCP Nurse Practitioner Family; Visit Provider Nurse Practitioner Family
DX: R06.02 Shortness of breath (principal); M54.2 Cervicalgia; M54.6 Pain in thoracic spine
CPT/HCPCS: 71046; 72040; 72070

== ENCOUNTER 2025-02-19 14:31 | Outpatient (RCR) | payer MEDICARE, BC, SELFPAY ==
--- NOTE | 2025-02-19 15:29 | PTOPEVDC ---
Assessment and note entered by Jackson Ansari, PT Thank you for referring Megha Matthews to [facility].? An evaluation has been completed. No further treatment is needed. Evaluation Information Assessment Status Evaluation Diagnosis Muscle Spasms ICD-10 Condition Codes (PT) Pain in Thoracic Spine M54.6 Onset 01/27/25 Subjective Information Reports that she was recently diagnosed with bronchitis and she is attributing that to her back pain. She is still coughing and has been doing a lot since the last month. She has been having some trouble sleeping as well. Back is hurting all the time but movement makes it worse. Patient states that she is unsure why she is in therapy and would like to see how she does with the inhaler and antibiotics first. Reported Pain Level Pain Score 5: Self Report Assessment PT Clinical Summary Patient presents with palpable thoracic spine pain . She has requested to forgo therapy and we emphasized exercise activity to work on thoracic spine mobility and posturing to help accommodate for side effects of coughing due to bronchitis. Patient was issued HEP to address and will be discharged at this time. Plan of Care PT Services Indicated Yes
== END 2025-02-20 09:32 | disposition home or self-care (01) ==
LOC: ANHPT 14:31
PROVIDERS: PCP Nurse Practitioner Family; Visit Provider Nurse Practitioner Family
DX: M62.830 Muscle spasm of back (principal)
CPT/HCPCS: 97110; 97161